=== PATIENT | male | born 1960 | race American Indian/Alaskan Native ===

== ENCOUNTER 2021-07-05 12:16 | Emergency (ER) | payer MEDICAID ==
--- NOTE | 2021-07-05 14:34 | Emergency Department Report ---
HPI - General Chief Complaint: Altered Mental Status Time Seen by Provider: 07/05/21 14:20 - HPI HPI: Room 21 The patient is a 60-year-old male present with a chief complaint of bilateral lower extremity pain. Patient is a poor historian and at times has unintelligible speech but is able to state he has had bilateral lower extremity pain attributed to his gout for the past 3 weeks. Patient denies any other complaints. Patient admits to cocaine use and states he last used last night. The patient was reportedly brought in by EMS from home however the patient's mental baseline is not known at this time. ED Past Medical Hx - Surgical History Past Surgical History?: No - Family History Family history: no significant - Social History Smoking Status: Current Every Day Smoker Substance Use Type: Cocaine ED Review of Systems ROS: Stated complaint: BODY ACHES Other details as noted in HPI Constitutional: no symptoms reported Eyes: denies: eye pain ENT: denies: ear pain, throat pain Respiratory: no symptoms reported Cardiovascular: denies: chest pain Endocrine: no symptoms reported Gastrointestinal: denies: abdominal pain Genitourinary: denies: dysuria Musculoskeletal: myalgia Neurological: denies: headache Physical Exam - Physical Exam Vital Signs: Vital Signs 07/05/21 15:51 Temperature 98.0 F Pulse Rate 81 Respiratory 20 Rate Blood Pressure 126/71 [Right] O2 Sat by Pulse 95 Oximetry Physical Exam: GENERAL: The patient is well-developed well-nourished male lying prone on stretcher appearing restless. [] HEENT: Normocephalic. Atraumatic. Extraocular motions are intact. Patient has moist mucous membranes. NECK: Supple. Trachea midline CHEST/LUNGS: Clear to auscultation. There is no respiratory distress noted. HEART/CARDIOVASCULAR: Regular. There is no tachycardia. There is no gallop rub or murmur. ABDOMEN: Abdomen is soft, nontender. Patient has normal bowel sounds. There is no abdominal distention. SKIN: There is no rash. There is no edema. There is no diaphoresis. NEURO: The patient is awake, alert, and oriented. The patient at times has garbled speech and appears to be under the influence of a controlled substance. The patient is cooperative. The patient has no focal neurologic deficits. The patient has occasionally garbled speech MUSCULOSKELETAL: There is no evidence of acute injury. ED Medical Decision Making - Lab Data Result diagrams: 07/05/21 14:33 07/05/21 14:33 Laboratory Tests 07/05/21 07/05/21 07/05/21 14:33 14:33 14:33 WBC 11.0 RBC 3.64 L Hgb 9.5 L Hct 30.6 L MCV 84 MCH 26 L MCHC 31 L RDW 21.6 H Plt Count 226 Lymph % (Auto) 17.1 [place] % (Auto) 12.2 H Eos % (Auto) 1.9 Baso % (Auto) 0.9 Lymph # (Auto) 1.9 [place] # (Auto) 1.3 H Eos # (Auto) 0.2 Baso # (Auto) 0.1 Seg Neutrophils % 67.9 Seg Neutrophils # 7.4 Sodium 136 L Potassium 4.5 Chloride 99.8 Carbon Dioxide 23 Anion Gap 18 BUN 21 H Creatinine 1.3 Estimated GFR 57 BUN/Creatinine Ratio 16 Glucose 88 Calcium 8.3 L Total Bilirubin 1.70 H AST 48 H ALT 37 Alkaline Phosphatase 167 H Total Creatine Kinase 465 H NT-Pro-B Natriuret Pep 6747 H Total Protein 7.4 Albumin 3.2 L Albumin/Globulin Ratio 0.8 Plasma/Serum Alcohol 07/05/21 14:33 WBC RBC Hgb Hct MCV MCH MCHC RDW Plt Count Lymph % (Auto) [place] % (Auto) Eos % (Auto) Baso % (Auto) Lymph # (Auto) [place] # (Auto) Eos # (Auto) Baso # (Auto) Seg Neutrophils % Seg Neutrophils # Sodium Potassium Chloride Carbon Dioxide Anion Gap BUN Creatinine Estimated GFR BUN/Creatinine Ratio Glucose Calcium Total Bilirubin AST ALT Alkaline Phosphatase Total Creatine Kinase NT-Pro-B Natriuret Pep Total Protein Albumin Albumin/Globulin Ratio Plasma/Serum Alcohol < 0.01 - EKG Data -: EKG Interpreted by Me EKG shows normal: sinus rhythm Rate: normal - EKG Data When compared to previous EKG there are: previous EKG unavailable Interpretation: other (No ischemic changes seen) - Radiology Data Radiology results: report reviewed (CT head, chest x-ray, bilateral lower extremity Dopplers), image reviewed (CT head, chest x-ray, bilateral lower extremity Dopplers) interpreted by me: Chest [id number]. No pneumothorax [facility] [address] [place] [address] Cat Scan Report Signed Patient: ELVIN DUKES MR#: [id number] : 1960 Acct:[id number] Age/Sex: 60 / M ADM Date: 07/05/21 Loc: ED Attending Dr: Ordering Physician: PAUL LEWIS MD Date of Service: 07/05/21 Procedure(s): CT head/brain wo con Accession Number(s): [id number] cc: PAUL LEWIS MD . CT head/brain wo con INDICATION / CLINICAL INFORMATION: 60 years Male; Altered mental status. TECHNIQUE: Routine CT head without contrast. All CT scans at this location are performed using CT dose reduction for ALARA by means of automated exposure control. Motion artifact present. COMPARISON: None. FINDINGS: BRAIN / INTRACRANIAL CONTENTS: A few small lacunar infarcts are seen in the gangliocapsular regions-right greater than left. Otherwise, no acute hemorrhage, mass effect, midline shift, hydrocephalus, or acute, large territorial infarct. No signs of significant atrophy or chronic infarct. There are mild areas of decreased attenuation in the white matter of the cerebral hemispheres, as well as the gangliocapsular regions. These are nonspecific findings and may be related to microangiopathy (hypertension, diabetes, atherosclerosis), given the patient's age. CRANIOCERVICAL JUNCTION: No significant abnormality. ORBITS: No significant abnormality of visualized orbits. SINUSES / MASTOIDS: Visualized paranasal sinuses and mastoid air cells are essentially clear. ADDITIONAL FINDINGS: Very small lipoma suggested superficial to the right frontal bone-of no clinical significance. IMPRESSION: 1. No focal mass, hemorrhage, hydrocepha tona, or acute, large territorial infarct. Follow-up with diffusion imaging by MRI, as clinically warranted. Signer Name: Jesse Dominguez MD, III Signed: 07/05/2021 3:21 PM Workstation Name: [email or web address] Transcribed By: HR Dictated By: Jesse Dominguez MD Electronically Authenticated By: Jesse Dominguez MD Signed Date/Time: 07/05/21 1521 DD/ 1519 TD/TT: Print Cancel [facility] [address] [place] [address] XRay Report Signed Patient: ELVIN DUKES MR#: [id number] : 1960 Acct:[id number] Age/Sex: 60 / M ADM Date: 07/05/21 Loc: ED Attending Dr: Ordering Physician: PAUL LEWIS MD Date of Service: 07/05/21 Procedure(s): XR chest 1V ap Accession Number(s): [id number] cc: PAUL LEWIS MD Fluoro Time In Minutes: CHEST 1 VIEW 07/05/2021 6:46 PM INDICATION / CLINICAL INFORMATION: CHF. COMPARISON: None available. FINDINGS: SUPPORT DEVICES: None. HEART / MEDIASTINUM: Moderate cardiomegaly. LUNGS / PLEURA: Mild increased interstitial markings are likely chronic. No significant infiltrate. No pneumothorax. ADDITIONAL FINDINGS: No significant additional findings. IMPRESSION: 1. Moderate cardiomegaly. 2. Mild increased interstitial markings are favored to be chronic. Signer Name: Oliver Cifuentes MD Signed: 07/05/2021 6:49 PM Workstation Name: [id number] Transcribed By: ES Dictated By: Oliver Cifuentes MD Electronically Authenticated By: Oliver Cifuentes MD Signed Date/Time: 07/05/211848 DD/ 47 TD/TT: Print Cancel [facility] [address] [place] [address] Vascular Lab Report Signed Patient: ELVIN DUKES MR#: [id number] : 1960 Acct:[id number] Age/Sex: 60 / M ADM Date: 07/05/21 Loc: ED Attending Dr: Ordering Physician: PAUL LEWIS MD Date of Service: 07/05/21 Procedure(s): VL venous duplex LE BILAT Accession Number(s): [id number] cc: PAUL LEWIS MD DUPLEX DOPPLER LOWER EXTREMITY VEINS, BILATERAL INDICATION / CLINICAL INFORMATION: Pain and swelling. TECHNIQUE: Duplex doppler imaging was performed through the veins of both lower extremities using venous compression and other maneuvers. COMPARISON: None available. FINDINGS: RIGHT COMMON FEMORAL VEIN: Negative. RIGHT FEMORAL VEIN: Negative. RIGHT POPLITEAL VEIN: Negative. RIGHT CALF VEINS: Negative. LEFT COMMON FEMORAL VEIN: Negative. LEFT FEMORAL VEIN: Negative. LEFT POPLITEAL VEIN: Negative. LEFT CALF VEINS: Negative. ADDITIONAL FINDINGS: None. IMPRESSION: 1. No sonographic evidence for DVT in either lower extremity. Signer Name: Alex Vogel MD Signed: 07/06/2021 5:16 PM Workstation Name: [id number] Transcribed By: TANNER Dictated By: Alex Vogel MD Electronically Authenticated By: Alex Vogel MD Signed Date/Time: 07/06/211715 DD/ 14 TD/TT: Print Cancel - Differential Diagnosis Gout, DVTs, CHF, peripheral edema, ICH Critical care attestation.: If time is entered above; I have spent that time in minutes in the direct care of this critically ill patient, excluding procedure time. ED Disposition Clinical Impression: Altered mental status, CHF (congestive heart failure), Peripheral edema Disposition: OP ADMIT IP TO THIS HOSP Is pt being admited?: Yes Does the pt Need Aspirin: Yes Condition: Fair Referrals: PRIMARY CARE, [Primary Care Provider] - 3-5 Days Time of Disposition: 19:20 (Hospitalist paged (Dr. Dubose))
[2021-07-05 14:47] LABS: Basophils # (Auto) 0.1 K/mm3 (0.0-0.1); Basophils % (Auto) 0.9 % (0.0-1.8); Eosinophils # (Auto) 0.2 K/mm3 (0.0-0.4); Eosinophils % (Auto) 1.9 % (0.0-4.3); Hematocrit 30.6 % (35.5-45.6); Hemoglobin 9.5 gm/dl (11.8-15.2); Lymphocytes # (Auto) 1.9 K/mm3 (1.2-5.4); Lymphocytes % (Auto) 17.1 % (13.4-35.0); Mean Corpuscular HGB Conc 31 % (32-34); Mean Corpuscular Volume 84 fl (84-94); Monocytes # (Auto) 1.3 K/mm3 (0.0-0.8); Monocytes % (Auto) 12.2 % (0.0-7.3); Platelet Count 226 K/mm3 (140-440); Red Blood Count 3.64 M/mm3 (3.65-5.03)
[2021-07-05 14:53] LABS: Red Cell Distribution Width 21.6 % (13.2-15.2)
[2021-07-05 15:10] LABS: Albumin 3.2 g/dL (3.9-5); Calcium 8.3 mg/dL (8.4-10.2)
--- NOTE | 2021-07-05 15:26 | Cat Scan Report ---
. CT head/brain wo con INDICATION / CLINICAL INFORMATION: 60 years Male; Altered mental status. TECHNIQUE: Routine CT head without contrast. All CT scans at this location are performed using CT dos e reduction for ALARA by means of automated exposure control. Motion artifact present. COMPARISON: None. FINDINGS: BRAIN / INTRACRANIAL CONTENTS: A few small lacunar infarcts are seen in the gangliocapsular regions-r ight greater than left. Otherwise, no acute hemorrhage, mass effect, midline shift, hydrocephalus, or acute, large territori al infarct. No signs of significant atrophy or chronic infarct. There are mild areas of decreased attenuation in the white matter of the cerebral hemispheres, as wel l as the gangliocapsular regions. These are nonspecific findings and may be related to microangiopath y (hypertension, diabetes, atherosclerosis), given the patient's age. CRANIOCERVICAL JUNCTION: No significant abnormality. ORBITS: No significant abnormality of visualized orbits. SINUSES / MASTOIDS: Visualized paranasal sinuses and mastoid air cells are essentially clear. ADDITIONAL FINDINGS: Very small lipoma suggested superficial to the right frontal bone-of no clinical significance. IMPRESSION: 1. No focal mass, hemorrhage, hydrocephalus, or acute, large territorial infarct. Follow-up with diff usion imaging by MRI, as clinically warranted. Signer Name: Jesse Dominguez MD, III Signed: 07/05/2021 3:21 PM Workstation Name: [email or web address]
[2021-07-05] MEDS ORDERED: HYDROcodone/ACETAMINOPHEN 5-325 MG TAB PO ONE (15:45)
[2021-07-05] MEDS ORDERED: FUROSEMIDE 40 MG/4 ML INJ IV ONE (18:26)
--- NOTE | 2021-07-05 18:53 | XRay Report ---
CHEST 1 VIEW 07/05/2021 6:46 PM INDICATION / CLINICAL INFORMATION: CHF. COMPARISON: None available. FINDINGS: SUPPORT DEVICES: None. HEART / MEDIASTINUM: Moderate cardiomegaly. LUNGS / PLEURA: Mild increased interstitial markings are likely chronic. No significant infiltrate. N o pneumothorax. ADDITIONAL FINDINGS: No significant additional findings. IMPRESSION: 1. Moderate cardiomegaly. 2. Mild increased interstitial markings are favored to be chronic. Signer Name: Oliver Cifuentes MD Signed: 07/05/2021 6:49 PM Workstation Name: [id number]
[2021-07-05] MEDS ORDERED: ASPIRIN 325 MG TAB PO ONE (19:06)
--- NOTE | 2021-07-05 20:10 | Event Note ---
Date: 07/05/21 Patient discussed with ER attending. Patient found to have schizophrenia. Recommend mental health evaluation. Patient has elevated BNP with compensated heart failure at this time. Patient does not meet admission criteria.
[2021-07-05 23:19] LABS: Amphetamine Screen,Urine PRESUMPTIVE NEGATIVE; Bacteria,Urine 1+ /HPF (Negative); Benzodiazepines Screen,Urine PRESUMPTIVE NEGATIVE; Bilirubin,Urine NEG (Negative); Blood,Urine NEG (Negative); Cannabinoid Screen,Urine PRESUMPTIVE NEGATIVE; Cocaine Screen,Urine PRESUMPTIVE POSITIVE; Color,Urine Amber (Yellow); Methadone Screen,Urine PRESUMPTIVE NEGATIVE; Mucus,Urine FEW /HPF; Opiate Screen,Urine PRESUMPTIVE NEGATIVE
[2021-07-06] MEDS ORDERED: ZIPRASIDONE MESYLATE 20 MG VIAL IM ONE (08:34)
[2021-07-06] MEDS ORDERED: WATER FOR INJ Sterile (PF) 10 ML ONE ×2 (08:37→16:32)
--- NOTE | 2021-07-06 12:20 | Consultation ---
History of Present Illness - Reason for Consult Consult date: 07/06/21 Reason for consult: Mental health evaluation - History of Present Psychiatric Illness Per Ed Note: The patient is a 60-year-old male present with a chief complaint of bilateral lower extremity pain. Patient is a poor historian and at times has unintelligible speech but is able to state he has had bilateral lower extremity pain attributed to his gout for the past 3 weeks. Patient denies any other complaints. Patient admits to cocaine use and states he last used last night. The patient was reportedly brought in by EMS from home however the patient's mental baseline is not known at this time. Torito Dey is a 60 year old male with a history of Schizophrenia. The patient was seen very drowsy and unable to assess patient at this time. Per nurse, the patient was recently given Geodon IM inj. Diagnoses: Schizophrenia Suicide attempts or Self-harm behavior:Unable to assess Prior psychiatric hospitalizations: Unable to assess Substance Abuse history: Unable to assess Previous psychiatric medications tried: Unable to assess Outpatient treatment: Unable to assess PAST MEDICAL HISTORY: None reported Family Psychiatric History: None reported or documented SOCIAL HISTORY-Unable to assess REVIEW OF SYSTEMS-Unable to assess MENTAL STATUS EXAMINATION-Unable to assess Assessment and Plan (1) Schizophrenia Current Visit: Yes Status: Acute Treatment Plan Start Sitter: Per primary Medical: Per primary Disposition: Recommend acute psychiatric inpatient treatment. Will follow. Thanks Case staffed with Dr. Zavala Medications and Allergies Allergies Allergy/AdvReac Type Severity Reaction Status Date / Time No Known Allergies Allergy Verified 07/05/21 21:35 Mental Status Exam - Vital signs Last Vital Signs Temp 98.0 F 07/05/21 15:51 Pulse 95 H 07/05/21 19:46 Resp 12 07/05/21 21:46 BP 121/76 07/06/21 06:16 Pulse Ox 100 07/06/21 08:00 Results Result Diagrams: 07/05/21 14:33 07/05/21 14:33 Abnormal lab results 07/05/21 07/05/21 07/05/21 Range/Units 14:33 14:33 14:33 RBC 3.64 L (3.65-5.03) M/mm3 Hgb 9.5 L (11.8-15.2) gm/dl Hct 30.6 L (35.5-45.6) % MCH 26 L (28-32) pg MCHC 31 L (32-34) % RDW 21.6 H (13.2-15.2) % [place] % (Auto) 12.2 H (0.0-7.3) % [place] # (Auto) 1.3 H (0.0-0.8) K/mm3 Sodium 136 L (137-145) mmol/L BUN 21 H (9-20) mg/dL Calcium 8.3 L (8.4-10.2) mg/dL Total Bilirubin 1.70 H (0.1-1.2) mg/dL AST 48 H (5-40) units/L Alkaline Phosphatase 167 H (35-129) units/L Total Creatine Kinase 465 H (55-170) units/L NT-Pro-B Natriuret Pep 6747 H (0-900) pg/mL Albumin 3.2 L (3.9-5) g/dL All other labs normal.
--- NOTE | 2021-07-06 12:31 | Event Note ---
Date: 07/06/21 S: Patient admitted to the hospitalist by myself last night. Patient was seen by hospitalist Dr. Dubose and cleared medically stating patient does not meet inpatient criteria. The patient had to be sedated with Geodon secondary to verbal outbursts. A mental health consultation was recommended which has been obtained. currently recommending inpatient psychiatric placement. O: Vital Signs - 24 hr 07/05/21 07/05/21 07/05/21 15:51 19:18 19:30 Temperature 98.0 F Pulse Rate 81 93 H 93 H Respiratory 20 9 L 11 L Rate Blood Pressure 123/86 Blood Pressure 126/71 118/74 [Right] O2 Sat by Pulse 95 97 98 Oximetry 07/05/21 07/05/21 07/05/21 19:46 20:00 20:16 Temperature Pulse Rate 95 H Respiratory 9 L 12 9 L Rate Blood Pressure 134/94 127/89 124/92 Blood Pressure [Right] O2 Sat by Pulse 100 98 Oximetry 07/05/21 07/05/21 07/05/21 20:30 20:46 21:00 Temperature Pulse Rate Respiratory 12 10 L 10 L Rate Blood Pressure 132/92 117/85 124/86 Blood Pressure [Right] O2 Sat by Pulse 99 99 97 Oximetry 07/05/21 07/05/21 07/05/21 21:16 21:30 21:46 Temperature Pulse Rate Respiratory 9 L 9 L 12 Rate Blood Pressure 128/96 129/88 126/91 Blood Pressure [Right] O2 Sat by Pulse 99 99 99 Oximetry 07/05/21 07/05/21 07/05/21 22:40 23:00 23:15 Temperature Pulse Rate Respiratory Rate Blood Pressure 93/50 130/85 93/50 Blood Pressure [Right] O2 Sat by Pulse 68 L Oximetry 07/05/21 07/05/21 07/06/21 23:30 23:46 00:00 Temperature Pulse Rate Respiratory Rate Blood Pressure 130/85 130/85 106/70 Blood Pressure [Right] O2 Sat by Pulse 99 97 99 Oximetry 07/06/21 07/06/21 07/06/21 00:16 00:30 00:46 Temperature Pulse Rate Respiratory Rate Blood Pressure 106/70 111/59 111/59 Blood Pressure [Right] O2 Sat by Pulse 97 97 100 Oximetry 07/06/21 07/06/21 07/06/21 01:00 01:16 01:30 Temperature Pulse Rate Respiratory Rate Blood Pressure 120/67 120/67 120/67 Blood Pressure [Right] O2 Sat by Pulse 97 100 98 Oximetry 07/06/21 07/06/21 07/06/21 01:46 02:00 02:16 Temperature Pulse Rate Respiratory Rate Blood Pressure 120/67 120/81 120/67 Blood Pressure [Right] O2 Sat by Pulse 97 98 98 Oximetry 07/06/21 07/06/21 07/06/21 02:30 02:46 03:00 Temperature Pulse Rate Respiratory Rate Blood Pressure 101/72 101/72 101/72 Blood Pressure [Right] O2 Sat by Pulse 78 L 95 96 Oximetry 07/06/21 07/06/21 07/06/21 03:30 03:46 04:00 Temperature Pulse Rate Respiratory Rate Blood Pressure 101/72 101/72 115/89 Blood Pressure [Right] O2 Sat by Pulse 99 99 85 Oximetry 07/06/21 07/06/21 07/06/21 04:16 04:30 04:46 Temperature Pulse Rate Respiratory Rate Blood Pressure 101/72 134/100 134/100 Blood Pressure [Right] O2 Sat by Pulse 96 100 100 Oximetry 07/06/21 07/06/21 07/06/21 05:00 05:16 05:30 Temperature Pulse Rate Respiratory Rate Blood Pressure 134/100 134/100 134/100 Blood Pressure [Right] O2 Sat by Pulse 99 95 98 Oximetry 07/06/21 07/06/21 07/06/21 05:46 06:00 06:16 Temperature Pulse Rate Respiratory Rate Blood Pressure 134/100 121/76 121/76 Blood Pressure [Right] O2 Sat by Pulse 96 96 93 Oximetry 07/06/21 07/06/21 07/06/21 06:30 06:46 07:00 Temperature Pulse Rate Respiratory Rate Blood Pressure Blood Pressure [Right] O2 Sat by Pulse 97 97 98 Oximetry 07/06/21 07/06/21 07/06/21 07:16 07:30 07:46 Temperature Pulse Rate Respiratory Rate Blood Pressure Blood Pressure [Right] O2 Sat by Pulse 98 100 97 Oximetry 07/06/21 08:00 Temperature Pulse Rate Respiratory Rate Blood Pressure Blood Pressure [Right] O2 Sat by Pulse 100 Oximetry A: Schizophrenia, compensated CHF P: Awaiting inpatient psychiatric placement
--- NOTE | 2021-07-06 14:32 | Electrocardiograph Report ---
[facility] Test Date: 2021-07-05 Test Time: 18:59:15 Pat Name: ELVIN DUKES Department: Room: Gender: M Shipping Lead: KANCHAN : 1960 Requested By: PAUL LEWIS Order Number: [id number] Reading MD: Milan Winters Measurements Intervals [place] Rate: 97 P: 56 AL: 160 QRS: 18 QRSD: 132 T: 132 QT: 405 QTc: 516 Interpretive Statements Sinus rhythm IVCD, consider LBBB Prolonged QT interval No previous ECG available for comparison Electronically Signed On 07-06-2021 14:31:46 EDT by Milan Winters
[2021-07-06] MEDS ORDERED: ZIPRASIDONE MESYLATE 20 MG VIAL IM PRN (16:16)
[2021-07-06] MEDS ORDERED: LORazepam 2 MG/ML VIAL IM PRN (16:16)
[2021-07-06] MEDS ORDERED: diphenhydrAMINE 50 MG/ML VIAL IM PRN (16:16)
--- NOTE | 2021-07-06 17:20 | Vascular Lab Report ---
DUPLEX DOPPLER LOWER EXTREMITY VEINS, BILATERAL INDICATION / CLINICAL INFORMATION: Pain and swelling. TECHNIQUE: Duplex doppler imaging was performed through the veins of both lower extremities using venous cherelle babs and other maneuvers. COMPARISON: None available. FINDINGS: RIGHT COMMON FEMORAL VEIN: Negative. RIGHT FEMORAL VEIN: Negative. RIGHT POPLITEAL VEIN: Negative. RIGHT CALF VEINS: Negative. LEFT COMMON FEMORAL VEIN: Negative. LEFT FEMORAL VEIN: Negative. LEFT POPLITEAL VEIN: Negative. LEFT CALF VEINS: Negative. ADDITIONAL FINDINGS: None. IMPRESSION: 1. No sonographic evidence for DVT in either lower extremity. Signer Name: Alex Vogel MD Signed: 07/06/2021 5:16 PM Workstation Name: [id number]
[2021-07-07 09:16] VITALS: BP 147/77
--- NOTE | 2021-07-07 09:51 | Progress Note ---
Subjective - Reason for Consult Consult date: 07/07/21 Reason for consult: Mental health eval - Chief Complaint Chief complaint: The patient was seen today and he states he is not sure why he is here. The patient reports that he is homeless. He denies any current suicidal/homicidal ideation and denies hallucinations. REVIEW OF SYSTEMS Constitutional: Negative for weight loss ENT: Negative for stridor Respiratory: Negative for cough or hemoptysis All other systems reviewed and are negative MENTAL STATUS EXAMINATION General Appearance and Behavior: Age appropriate, good hygiene, wearing appropri ate clothes, cooperative, cooperative Cooperation: Participating/engaged Psychomotor Behavior: normal Mood: "ok" Affect and affective range: congruent with stated mood Thought Process: goal directed Thought Content: Not Suicidal Speech: Normal volume, Regular rate and rhythm Suicidal Ideation: Denies Homicidal Ideation: Denies Hallucinations: Denies Delusions: None elicited Impulse Control: Questionable Insight and Judgment: poor insight and judgment, Memory: abnormal Attention: Distractible Orientation: Alert, oriented Assessment and Plan (1) Schizophrenia (2) Current Visit: Yes Status: Acute Treatment Plan Case management consult Sitter: Per primary Medical: Per primary Disposition: Do not recommend acute psychiatric inpatient treatment. The patient understands that if suicidal/homicidal ideas or any endangering thoughts/ behaviors arise, they should seek immediate assistance including but not limited to crisis hotline and emergency room. The patient will follow up with outpatient referrals provided by the mental health quality control assessor. Will sign off. Thanks Case staffed with Dr. Zavala Mental Status Exam - Vital signs Last Vital Signs Temp 97.5 F L 07/07/21 09:14 Pulse 88 07/07/21 09:14 Resp 16 07/07/21 09:14 BP 147/77 07/07/21 09:14 Pulse Ox 97 07/07/21 09:14
== END 2021-07-07 14:45 | disposition home or self-care (01) ==
LOC: EEVIPCON 12:16 → ED 12:16
DX: R41.82 Altered mental status, unspecified (principal); R60.9 Edema, unspecified; I50.9 Heart failure, unspecified; F17.290 Nicotine dependence, other tobacco product, uncomplicated; Z20.822 Contact with and (suspected) exposure to COVID-19
CPT/HCPCS: 36415; 70450; 71045; 80053; 80307; 81001; 82550; 83880; 85025; 93005; 93970; 96372; 96374; 99285; J1200; J2060; J3486; U0003; 80320; G0480

== ENCOUNTER 2021-11-03 19:28 | Emergency (ER) | payer MEDICAID ==
[2021-11-03 19:32] VITALS: BP 134/82
--- NOTE | 2021-11-03 21:42 | Emergency Department Report ---
ED Chest Pain HPI - General Chief Complaint: Pain General Stated Complaint: GOUT/ LEFT ARM PAIN Time Seen by Provider: 11/03/21 21:17 Source: EMS Mode of arrival: Wheelchair Limitations: No Limitations - History of Present Illness Initial Comments: 60-year-old Stateless male past no history of hypertension and and known CHF [facility] emerge department complaining of lower extremity swelling and suspicion for is a heart failure exacerbation given that he is not been taking his medication explained some swelling and some occasional shortness of breath. Re ports no hemoptysis no hematemesis hematochezia, no fever, chills, sweats. No nausea, no vomiting and is unsure about weight gain MD Complaint: chest pain -: Gradual, days(s) (6) Onset: other Pain Location: left chest Pain Radiation: none Severity: mild, moderate Quality: dull Consistency: constant Improves With: nothing Worsens With: nothing re: nausea Other Symptoms: cough. denies: acid taste in mouth, leg swelling, palpitations, burping Treatments Prior to Arrival: none - Related Data On Oral Contraceptives: No Home Medications Medication Instructions Recorded Confirmed Last Taken Albuterol Mdi (or & Nicu Only) 2 puff IH QID PRN 08/01/21 08/01/21 Unknown [ProAir HFA Inhaler] AtorvaSTATin [Lipitor] 20 mg PO QHS 08/01/21 08/01/21 07/29/21 Cyclobenzaprine [Flexeril] 10 mg PO QHS 08/01/21 08/01/21 07/29/21 Furosemide [Lasix] 40 mg PO DAILY 08/01/21 08/01/21 07/29/21 Isosorbide Mononitrate [Isosorbide 30 mg PO DAILY 08/01/21 08/01/21 07/29/21 Mononitrate ER] Oxycodone HCl [roxiCODONE] 30 mg PO Q6H 08/01/21 08/01/21 07/29/21 Oxycodone HCl/Acetaminophen 1 each PO Q6H 08/01/21 08/01/21 07/29/21 [Oxycodone-Acetaminophen 10-325] carvediloL [Coreg] 6.25 mg PO BID 08/01/21 08/01/21 07/29/21 lisinopriL 10 mg PO DAILY 0908/01/21 07/29/21 Previous Rx's Medication Instructions Recorded Last Taken Type risperiDONE [RisperDAL] 2 mg PO QHS 30 Days #30 tablet 07/07/21 07/29/21 Rx Furosemide [Lasix TAB] 40 mg PO QDAY #7 tablet 11/04/21 Unknown Rx Potassium Chloride [K-Dur] 10 meq PO QDAY #7 tablet 11/04/21 Unknown Rx Allergies Allergy/AdvReac Type Severity Reaction Status Date / Time No Known Allergies Allergy Verified 11/03/21 19:31 Heart Score - HEART Score History: Moderately suspicious EKG: Normal Age: 45-65 Risk factors: 1-2 risk factors Troponin: < normal limit HEART Score: 3 ED Review of Systems ROS: Stated complaint: GOUT/ LEFT ARM PAIN Other details as noted in HPI Comment: All other systems reviewed and negative ED Past Medical Hx - Past Medical History Hx Hypertension: Yes Hx Diabetes: Yes Additional medical history: gout - Surgical History Additional Surgical History: unknown - Social History Smoking Status: Never Smoker - Medications Home Medications: Home Medications Medication Instructions Recorded Confirmed Last Taken Type risperiDONE [RisperDAL] 2 mg PO QHS 30 Days #30 tablet 07/07/21 08/01/21 07/29/21 Rx Albuterol Mdi (or & Nicu Only) 2 puff IH QID PRN 08/01/21 08/01/21 Unknown History [ProAir HFA Inhaler] AtorvaSTATin [Lipitor] 20 mg PO QHS 08/01/21 08/01/21 07/29/21 History Cyclobenzaprine [Flexeril] 10 mg PO QHS 08/01/21 08/01/21 07/29/21 History Furosemide [Lasix] 40 mg PO DAILY 08/01/21 08/01/21 07/29/21 History Isosorbide Mononitrate [Isosorbide 30 mg PO DAILY 08/01/21 08/01/21 07/29/21 History Mononitrate ER] Oxycodone HCl [roxiCODONE] 30 mg PO Q6H 08/01/21 08/01/21 07/29/21 History Oxycodone HCl/Acetaminophen 1 each PO Q6H 08/01/21 08/01/21 07/29/21 History [Oxycodone-Acetaminophen 10-325] carvediloL [Coreg] 6.25 mg PO BID 08/01/21 08/01/21 07/29/21 History lisinopriL 10 mg PO DAILY 08/01/21 08/01/21 07/29/21 History Furosemide [Lasix TAB] 40 mg PO QDAY #7 tablet 11/04/21 Unknown Rx Potassium Chloride [K-Dur] 10 meq PO QDAY #7 tablet 11/04/21 Unknown Rx ED Physical Exam - General Limitations: No Limitations General appearance: alert, in no apparent distress - Head Head exam: Present: atraumatic, normocephalic - Eye Eye exam: Present: normal appearance, PERRL, EOMI Pupils: Present: normal accommodation - ENT ENT exam: Present: mucous membranes moist - Neck Neck exam: Present: normal inspection - Respiratory Respiratory exam: Present: normal lung sounds bilaterally, chest wall tenderness (left sided in rib area. no crepitus or step-off). Absent: respiratory distress - Cardiovascular Cardiovascular Exam: Present: regular rate, normal rhythm. Absent: systolic murmur, diastolic murmur, rubs, gallop - GI/Abdominal GI/Abdominal exam: Present: soft, normal bowel sounds - Rectal Rectal exam: Present: deferred - Extremities Exam Extremities exam: Present: normal inspection, normal capillary refill, pedal edema. Absent: tenderness, joint swelling, calf tenderness - Back Exam Back exam: Present: normal inspection. Absent: tenderness, CVA tenderness (R), CVA tenderness (L), paraspinal tenderness - Neurological Exam Neurological exam: Present: alert, oriented X3, CN II-XII intact, normal gait - Psychiatric Psychiatric exam: Present: normal affect, normal mood - Skin Skin exam: Present: warm, dry, intact, normal color. Absent: rash, diaphoretic ED Course Vital Signs 11/03/21 19:31 Temperature 98.9 F Pulse Rate 80 Respiratory 18 Rate Blood Pressure 134/82 [Left] O2 Sat by Pulse 99 Oximetry - Consultations Consultation #1: 11/04/21 00:34 Case was discussed with my attending Dr. Bose who agreed with the plan of care to treat the chronic/acute on chronic exacerbation of CHF with IV diuretics and discharge home as patient has remained hemodynamically stable with no signs of hypoxia ARBEN score - Arben Score Age > 65: (0) No Aspirin use within the Past 7 Days: (0) No 3 or more CAD Risk Factors: (0) No 2 or more Angina events in past 24 hrs: (0) No Known CAD with more than 50% Stenosis: (0) No Elevated Cardiac Markers: (0) No ST Deviation Greater than 0.5mm: (0) No ARBEN Score: 0 ED Medical Decision Making - Lab Data Result diagrams: 11/03/21 21:59 11/03/21 21:59 - EKG Data EKG shows normal: sinus rhythm Rate: normal - EKG Data When compared to previous EKG there are: no significant change Interpretation: no acute changes - Radiology Data Radiology results: report reviewed [facility] [address] [place] [address] XRay Report Signed Patient: ELVIN DUKES MR#: [id number] : 1960 Acct:[id number] Age/Sex: 60 / M ADM Date: 11/03/21 Loc: ED Attending Dr: Ordering Physician: BONY FISHMAN Date of Service: 11/03/21 Procedure(s): XR chest routine 2V Accession Number(s): [id number] cc: BONY FISHMAN Fluoro Time In Minutes: XR chest routine 2V INDICATION / CLINICAL INFORMATION: Chest Pain. COMPARISON: 08/02/2021 FINDINGS: SUPPORT DEVICES: None. HEART /PULMONARY VASCULATURE: Cardiac enlargement with pulmonary vasculature c ongestion. LUNGS / PLEURA: Diffuse increased interstitial opacities likely reflects edema. Streaky opacities in the left midlung may reflect atelectasis. No airspace consolidation of the right lung base. No sizable pleural effusion. No pneumothorax. ADDITIONAL FINDINGS: No significant additional findings. IMPRESSION: CHF/fluid overload with pulmonary edema. Right basilar consolidation may reflect focal asymmetric edema or infiltrate. Signer Name: Tatyana Hercules MD Signed: 11/03/2021 11:12 PM Workstation Name: [id number] Transcribed By: VIJAY Dictated By: TATYANA HERCULES MD Electronically Authenticated By: TATYANA HERCULES MD Signed Date/Time: 11/03/212311 DD/ 10 TD/TT: - Medical Decision Making 60-year-old male with a past medical history of hypertension, gout, CHF presents emergency department with signs and symptoms consistent with acute exacerbation of chronic CHF likely due to fluid overload/increase intake. Differential diagnosis includes other cardiopulmonary causes such as ischemia, PE, pneumothorax, pneumonia and as well as as other causes for for dyspnea such as asthma, COPD, flash pulmonary edema, dysuria arrhythmia although these are less likely. Patient is generally hemodynamically stable. Plan patient has remained hemodynamically stable, vital signs stable, relatively normal EKG and labs as well as troponin. Will require IV diuretics and medical optimization and should be a candidate for discharge home. Critical care attestation.: If time is entered above; I have spent that time in minutes in the direct care of this critically ill patient, excluding procedure time. ED Disposition Clinical Impression: CHF exacerbation Condition: Stable Instructions: Heart Failure, Self Care, Heart Failure, Diagnosis, Preventing Heart Failure, Heart Failure Exacerbation, Heart Failure Medicines, Heart Failure and Exercise, Heart Failure Eating Plan, Cardiac Rehabilitation Additional Instructions: You evaluate emergency department today for acute on chronic CHF. Evaluation showed no signs of any emergent intervention at this time. Treatment was made in the form of Lasix to decompress your current fluid volume and is recommended to restart taking your Lasix prescription that was recently prescribed by your primary care provider to avoid since heart failure exacerbation/fluid overload. Recommend follow-up with your primary care provider or [facility] mk 2 advanced operator as soon as possible for for further testing as an outpatient Prescriptions: Potassium Chloride [K-Dur] 10 meq PO QDAY #7 tablet Furosemide [Lasix TAB] 40 mg PO QDAY #7 tablet Referrals: PRIMARY MD NADEEN [Primary Care Provider] - 3-5 Days GARY ALLEN MD [Staff Physician] - 3-5 Days
[2021-11-03 22:53] LABS: Alanine Aminotransferase 11 units/L (7-56); Albumin 3.9 g/dL (3.9-5); BUN/Creatinine Ratio 11; Blood Urea Nitrogen 10 mg/dL (9-20); Calcium 8.8 mg/dL (8.4-10.2); Hemolysis Index 0
[2021-11-03 23:06] LABS: Basophils # (Auto) 0.1 K/mm3 (0.0-0.1); Basophils % (Auto) 0.8 % (0.0-1.8); Eosinophils # (Auto) 0.2 K/mm3 (0.0-0.4); Eosinophils % (Auto) 1.7 % (0.0-4.3); Lymphocytes # (Auto) 2.3 K/mm3 (1.2-5.4); Lymphocytes % (Auto) 19.7 % (13.4-35.0); Mean Corpuscular HGB Conc 30 % (32-34); Mean Corpuscular Volume 85 fl (84-94); Monocytes # (Auto) 1.3 K/mm3 (0.0-0.8); Monocytes % (Auto) 11.6 % (0.0-7.3); Platelet Count 269 K/mm3 (140-440); Red Blood Count 3.27 M/mm3 (3.65-5.03)
[2021-11-03 23:10] LABS: Hematocrit 27.9 % (35.5-45.6); Hemoglobin 8.2 gm/dl (11.8-15.2); Red Cell Distribution Width 21.6 % (13.2-15.2)
--- NOTE | 2021-11-03 23:16 | XRay Report ---
XR chest routine 2V INDICATION / CLINICAL INFORMATION: Chest Pain. COMPARISON: 08/02/2021 FINDINGS: SUPPORT DEVICES: None. HEART /PULMONARY VASCULATURE: Cardiac enlargement with pulmonary vasculature congestion. LUNGS / PLEURA: Diffuse increased interstitial opacities likely reflects edema. Streaky opacities in the left midlung may reflect atelectasis. No airspace consolidation of the right lung base. No sizabl e pleural effusion. No pneumothorax. ADDITIONAL FINDINGS: No significant additional findings. IMPRESSION: CHF/fluid overload with pulmonary edema. Right basilar consolidation may reflect focal asymmetric ayan ma or infiltrate. Signer Name: Agusto Hercules MD Signed: 11/03/2021 11:12 PM Workstation Name: [id number]
[2021-11-04] MEDS ORDERED: FUROSEMIDE 40 MG/4 ML INJ IV ONE
== END 2021-11-04 01:55 | disposition home or self-care (01) ==
LOC: ED 19:28
DX: I11.0 Hypertensive heart disease with heart failure (principal); I50.9 Heart failure, unspecified; Z79.899 Other long term (current) drug therapy
CPT/HCPCS: 36415; 71046; 80053; 83880; 84484; 85025; 96374; 99284; J1940

== ENCOUNTER 2021-11-29 00:24 | Emergency (ER) | payer MEDICAID ==
[2021-11-29 00:28] VITALS: BP 140/90
[2021-11-29] MEDS ORDERED: methylPREDNISolone Sod Succinate 125 MG/2 ML INJ IV ONE (01:58)
[2021-11-29] MEDS ORDERED: MORPHINE 4 MG/1 ML INJ IV ONE (01:58)
[2021-11-29] MEDS ORDERED: ONDANSETRON 4 MG/2 ML INJ IV ONE (01:58)
[2021-11-29] MEDS ORDERED: ASPIRIN 325 MG TAB PO ONE (01:59)
[2021-11-29 02:31] LABS: Basophils # (Auto) 0.1 K/mm3 (0.0-0.1); Basophils % (Auto) 0.6 % (0.0-1.8); Eosinophils # (Auto) 0.4 K/mm3 (0.0-0.4); Eosinophils % (Auto) 3.7 % (0.0-4.3); Lymphocytes # (Auto) 1.7 K/mm3 (1.2-5.4); Lymphocytes % (Auto) 16.2 % (13.4-35.0); Mean Corpuscular HGB Conc 30 % (32-34); Mean Corpuscular Volume 83 fl (84-94); Monocytes # (Auto) 1.4 K/mm3 (0.0-0.8); Monocytes % (Auto) 12.8 % (0.0-7.3); Platelet Count 382 K/mm3 (140-440); Red Blood Count 4.28 M/mm3 (3.65-5.03); Red Cell Distribution Width 19.7 % (13.2-15.2)
--- NOTE | 2021-11-29 02:39 | XRay Report ---
CHEST 1 VIEW INDICATION / CLINICAL INFORMATION: Left-sided chest pain. COMPARISON: 11/03/2021 FINDINGS: SUPPORT DEVICES: None. HEART / MEDIASTINUM: No significant abnormality. LUNGS / PLEURA: No significant pulmonary or pleural abnormality. No pneumothorax. ADDITIONAL FINDINGS: There is a healing fracture of the posterior sixth left rib. IMPRESSION: 1. No acute pulmonary or pleural disease. 2. Healing fracture of left posterior sixth rib. Signer Name: Ghislaine Lincoln MD Signed: 11/29/2021 2:35 AM Workstation Name: [id number]
[2021-11-29 02:49] LABS: Alanine Aminotransferase 28 units/L (7-56); Albumin 3.6 g/dL (3.9-5); BUN/Creatinine Ratio 14; Blood Urea Nitrogen 11 mg/dL (9-20); Calcium 9.2 mg/dL (8.4-10.2); Hemolysis Index 22
[2021-11-29 02:53] LABS: Hemoglobin 10.5 gm/dl (11.8-15.2)
[2021-11-29 02:54] LABS: Hematocrit 35.3 % (35.5-45.6)
--- NOTE | 2021-11-29 04:12 | Emergency Department Report ---
ED General Adult HPI - General Chief complaint: Pain General Stated complaint: BODY ACHES Source: EMS Mode of arrival: Wheelchair Limitations: No Limitations - History of Present Illness Initial comments: Patient is a 61-year-old -Fijian male with a history of hypertension, CHF, myi-axantlg-iamykciir diabetes, chronic osteoarthritis, chronic gout and asthma who presented to the ED with complaint of acute onset persistent diffuse body aches and pains, severe bilateral upper and lower extremity joint pains with left lateral rib pain for the last 12 hours. Patient states that he believes that his pain is due to his chronic osteoarthritis that is flaring up and that despite taking Tylenol at home the pain has been persistent and constant. Patient states that his pain is typical of his chronic osteoarthritis flareup pain. Patient denies dizziness, syncope, chest pain, shortness of breath, abdominal pain, nausea and vomiting, diarrhea, dysuria, urinary frequen cy and urgency, fever, chills, cough, sore throat, nasal and sinus congestion, numbness and tingling or weakness of upper and lower extremities bilaterally, fall or traumatic injury and heavy lifting. MD Complaint: diffuse polyarticular joint pains; left sided rib pain -: Sudden, hour(s) (12) Location: chest, upper extremity (bilaterally), lower extremity (bilaterally) Radiation: extremity (diffuse) Severity scale (0 -10): 8 Quality: aching, sharp Consistency: constant Improves with: none Worsens with: movement Associated Symptoms: denies other symptoms. denies: confusion, chest pain, cough, diaphoresis, headaches, loss of appetite, malaise, rash, shortness of breath, syncope Treatments Prior to Arrival: none - Related Data Home Medications Medication Instructions Recorded Confirmed Last Taken Oxycodone HCl [roxiCODONE] 30 mg PO Q6H 08/01/21 11/06/21 07/29/21 ALBUTEROL NEB's [Proventil 0.083% 2.5 mg IH QDAY 11/06/21 11/06/21 Unknown NEBS] Alfuzosin HCl [Alfuzosin HCl ER] 10 mg PO QDAY 11/06/21 11/06/21 Unknown Previous Rx's Medication Instructions Recorded Last Taken Type Aspirin [Aspirin BABY CHEW TAB] 81 mg PO QDAY #30 11/08/21 Unknown Rx AtorvaSTATin [Lipitor] 20 mg PO QHS #20 11/08/21 Unknown Rx Colchicine [Colcrys] 0.6 mg PO BID #10 tablet 11/08/21 Unknown Rx Cyclobenzaprine [Flexeril 10 MG 10 mg PO QHS #10 11/08/21 Unknown Rx TAB] Furosemide [Lasix TAB] 40 mg PO 0600,1800 tablet 11/08/21 Unknown Rx Furosemide [Lasix TAB] 80 mg PO QDAY #30 11/08/21 Unknown Rx Isosorbide Mononitrate [Isosorbide 30 mg PO DAILY #30 11/08/21 Unknown Rx Mononitrate ER] Nicotine [Habitrol] 14 mg TD DAILY #30 patch 11/08/21 Unknown Rx Pantoprazole [Protonix TAB] 40 mg PO QDAY #30 11/08/21 Unknown Rx Potassium Chloride [K-Dur] 10 meq PO QDAY #30 tablet 11/08/21 Unknown Rx carvediloL [Coreg] 6.25 mg PO BID #60 tablet 11/08/21 Unknown Rx lisinopriL [Zestril TAB] 10 mg PO QDAY #30 11/08/21 Unknown Rx risperiDONE [RisperDAL] 2 mg PO QHS #30 tablet 11/08/21 Unknown Rx Naproxen 500 mg PO Q12H PRN #30 tablet 11/29/21 Unknown Rx predniSONE [Deltasone] 40 mg PO QDAY #10 tab 11/29/21 Unknown Rx traMADoL [Ultram] 50 mg PO Q6HR PRN #10 tablet 11/29/21 Unknown Rx Allergies Allergy/AdvReac Type Severity Reaction Status Date / Time No Known Allergies Allergy Verified 11/29/21 00:27 ED Review of Systems ROS: Stated complaint: BODY ACHES Other details as noted in HPI Constitutional: denies: chills, fever Eyes: denies: eye pain, eye discharge, vision change ENT: denies: ear pain, throat pain Respiratory: denies: cough, shortness of breath, wheezing Cardiovascular: chest pain (Left lateral rib pain). denies: palpitations Endocrine: no symptoms reported Gastrointestinal: denies: abdominal pain, nausea, vomiting, diarrhea Genitourinary: denies: urgency, dysuria Musculoskeletal: back pain, arthralgia (Diffuse polyarticular joint pains), myalgia. denies: joint swelling Skin: denies: rash, lesions Neurological: denies: headache, weakness, paresthesias Psychiatric: denies: anxiety, depression Hematological/Lymphatic: denies: easy bleeding, easy bruising ED Past Medical Hx - Past Medical History Hx Hypertension: Yes Hx Congestive Heart Failure: Yes Hx Diabetes: Yes Hx Arthritis: Yes Hx Asthma: Yes Additional medical history: gout - Surgical History Additional Surgical History: unknown - Social History Smoking Status: Never Smoker - Medications Home Medications: Home Medications Medication Instructions Recorded Confirmed Last Taken Type Oxycodone HCl [roxiCODONE] 30 mg PO Q6H 08/01/21 11/06/21 07/29/21 History ALBUTEROL NEB's [Proventil 0.083% 2.5 mg IH QDAY 11/06/21 11/06/21 Unknown History NEBS] Alfuzosin HCl [Alfuzosin HCl ER] 10 mg PO QDAY 11/06/21 11/06/21 Unknown History Aspirin [Aspirin BABY CHEW TAB] 81 mg PO QDAY #30 11/08/21 Unknown Rx AtorvaSTATin [Lipitor] 20 mg PO QHS #20 11/08/21 Unknown Rx Colchicine [Colcrys] 0.6 mg PO BID #10 tablet 11/08/21 Unknown Rx Cyclobenzaprine [Flexeril 10 MG 10 mg PO QHS #10 11/08/21 Unknown Rx TAB] Furosemide [Lasix TAB] 40 mg PO 0600,1800 tablet 11/08/21 Unknown Rx Furosemide [Lasix TAB] 80 mg PO QDAY #30 11/08/21 Unknown Rx Isosorbide Mononitrate [Isosorbide 30 mg PO DAILY #30 11/08/21 Unknown Rx Mononitrate ER] Nicotine [Habitrol] 14 mg TD DAILY #30 patch 11/08/21 Unknown Rx Pantoprazole [Protonix TAB] 40 mg PO QDAY #30 11/08/21 Unknown Rx Potassium Chloride [K-Dur] 10 meq PO QDAY #30 tablet 11/08/21 Unknown Rx carvediloL [Coreg] 6.25 mg PO BID #60 tablet 11/08/21 Unknown Rx lisinopriL [Zestril TAB] 10 mg PO QDAY #30 11/08/21 Unknown Rx risperiDONE [RisperDAL] 2 mg PO QHS #30 tablet 11/08/21 Unknown Rx Naproxen 500 mg PO Q12H PRN #30 tablet 11/29/21 Unknown Rx predniSONE [Deltasone] 40 mg PO QDAY #10 tab 11/29/21 Unknown Rx traMADoL [Ultram] 50 mg PO Q6HR PRN #10 tablet 11/29/21 Unknown Rx ED Physical Exam - General Limitations: No Limitations General appearance: alert, in no apparent distress - Head Head exam: Present: atraumatic, normocephalic, normal inspection - Eye Eye exam: Present: normal appearance, PERRL, EOMI Pupils: Present: normal accommodation - ENT ENT exam: Present: normal exam, normal orophraynx, mucous membranes moist, TM's normal bilaterally, normal external ear exam - Neck Neck exam: Present: normal inspection, full ROM. Absent: tenderness, meningismus - Respiratory Respiratory exam: Present: normal lung sounds bilaterally, chest wall tenderness (Palpable reproducible left lateral rib tenderness). Absent: respiratory distress, wheezes, rales, accessory muscle use, decreased breath sounds - Cardiovascular Cardiovascular Exam: Present: regular rate, normal rhythm, normal heart sounds. Absent: systolic murmur, diastolic murmur, rubs, gallop - GI/Abdominal GI/Abdominal exam: Present: soft, normal bowel sounds. Absent: tenderness, rebound, hyperactive bowel sounds, hypoactive bowel sounds, organomegaly - Extremities Exam Extremities exam: Present: normal inspection, full ROM, tenderness (Palpable diffuse upper and lower extremity joint tenderness), normal capillary refill. Absent: pedal edema, joint swelling, calf tenderness - Back Exam Back exam: Present: normal inspection, full ROM, tenderness, muscle spasm, paraspinal tenderness. Absent: CVA tenderness (R), CVA tenderness (L), vertebral tenderness - Neurological Exam Neurological exam: Present: alert, oriented X3, CN II-XII intact, normal gait, reflexes normal - Psychiatric Psychiatric exam: Present: normal affect, normal mood - Skin Skin exam: Present: warm, dry, intact, normal color. Absent: rash ED Course Vital Signs 11/29/21 11/29/21 00:27 02:55 Temperature 98.2 F Pulse Rate 86 Respiratory 18 15 Rate Blood Pressure 140/90 [Left] O2 Sat by Pulse 98 Oximetry ED Medical Decision Making - Lab Data Result diagrams: 11/29/21 02:07 11/29/21 02:07 - Radiology Data Radiology results: report reviewed, image reviewed [facility] [address] [place] [address] XRay Report Signed Patient: ELVIN DUKES MR#: [id number] : 1960 Acct:[id number] Age/Sex: 61 / M ADM Date: 11/29/21 Loc: ED Attending Dr: Ordering Physician: BONY CORDON Date of Service: 11/29/21 Procedure(s): XR chest 1V ap Accession Number(s): [id number] cc: BONY CORDON Fluoro Time In Minutes: CHEST 1 VIEW INDICATION / CLINICAL INFORMATION: Left-sided chest pain. COMPARISON: 11/03/2021 FINDINGS: SUPPORT DEVICES: None. HEART / MEDIASTINUM: No significant abnormality. LUNGS / PLEURA: No significant pulmonary or pleural abnormality. No pneumo thorax. ADDITIONAL FINDINGS: There is a healing fracture of the posterior sixth left rib. IMPRESSION: 1. No acute pulmonary or pleural disease. 2. Healing fracture of left posterior sixth rib. Signer Name: Ghislaine Lincoln MD Signed: 11/29/2021 2:35 AM Workstation Name: [id number] Transcribed By: Dictated By: Ghislaine Lincoln MD Electronically Authenticated By: Ghislaine Lincoln MD Signed Date/Time: 11/29/21234 DD/ 1 TD/TT: Print - Medical Decision Making This is a 61-year-old -Fijian male with a history of hypertension, CHF, lin-jkynojv-kpiquupkm diabetes, chronic osteoarthritis, chronic gout and asthma who presented to the ED with complaint of acute onset persistent diffuse body aches and pains, severe bilateral upper and lower extremity joint pains with left lateral rib pain for the last 12 hours. Patient states that he believes that his pain is due to his chronic osteoarthritis that is flaring up and that despite taking Tylenol at home the pain has been persistent and constant. Patient states that his pain is typical of his chronic osteoarthritis flareup pain. In the ED, patient is alert and oriented x3 and is not in any distress. Patient was treated in the ED for pain, and lab test results were reviewed and showed mild hyponatremia 133 mmol/L, and BNP of 1801 with a normal troponin level. Chest x-ray showed no acute pulmonary or pleural disease. It also s howed a healing fracture of left posterior sixth rib. Patient was also treated in the ED with Lasix 40 mg IV x1. Although the patient has a prescription of Lasix with him in the ED, it is doubtful whether the patient is any compliant with his regular medications given the fact that he was just discharged from [facility] 3 days ago after spending 6 days in the hospital for CHF exacerbation. Patient however presented to the ED with chronic pain complaints. On reevaluation, patient felt better, pain is well controlled medication. Patient was discharged home and encouraged to take his Lasix that he already has at home in order to control his CHF condition. Patient was otherwise advised to follow-up with his primary care physician in 3 to 5 days for reevaluation or return to the ED immediately if symptoms get worse. - Differential Diagnosis Chest wall muscle strain; chronic osteoarthritis; chronic gouty arthropathy Critical care attestation.: If time is entered above; I have spent that time in minutes in the direct care of this critically ill patient, excluding procedure time. ED Disposition Clinical Impression: Chronic osteoarthritis, Chronic pain syndrome, Rib pain on left side Chronic CHF (congestive heart failure) Qualifiers: Heart failure type: unspecified Qualified Code(s): I50.9 - Heart failure, unspecified Disposition: 01 HOME / SELF CARE / HOMELESS Is pt being admited?: No Does the pt Need Aspirin: No Condition: Stable Instructions: Arthritis, [place]-Gjsu, Chest Wall Pain, Jqkz-[id number]-Awmh, Nonspecific Chest Pain, Adult, Pnvw-[id number] Additional Instructions: All lab test results were reviewed and are all nonactionable except for elevated BNP of 1801. Therefore take medications with food, drink plenty of fluids and follow-up with your primary care physician in 3 to 5 days for reevaluation or return to the ED immediately if symptoms get worse. Prescriptions: predniSONE [Deltasone] 40 mg PO QDAY #10 tab Naproxen 500 mg PO Q12H PRN #30 tablet PRN Reason: Pain , Severe (7-10) traMADoL [Ultram] 50 mg PO Q6HR PRN #10 tablet PRN Reason: Pain Referrals: [facility] [Provider Group] - 3-5 Days Time of Disposition: 04:12 Print Language: ROMANIAN
[2021-11-29] MEDS ORDERED: FUROSEMIDE 40 MG/4 ML INJ IV ONE (04:15)
[2021-11-29] MEDS ORDERED: FAMOTIDINE 20 MG TAB PO ONE (05:36)
== END 2021-11-29 10:00 | disposition home or self-care (01) ==
LOC: ED 00:24
DX: I50.9 Heart failure, unspecified (principal); G89.29 Other chronic pain; R07.81 Pleurodynia; M19.90 Unspecified osteoarthritis, unspecified site; I10 Essential (primary) hypertension; E11.8 Type 2 diabetes mellitus with unspecified complications; J45.909 Unspecified asthma, uncomplicated; Z79.82 Long term (current) use of aspirin; Z79.899 Other long term (current) drug therapy
CPT/HCPCS: 36415; 71045; 80053; 83880; 84484; 85025; 96374; 96375; 99284; J1940; J2270; J2405; J2930

== ENCOUNTER 2021-12-06 16:00 | Emergency (ER) | payer MEDICAID ==
[2021-12-06] MEDS ORDERED: methylPREDNISolone ACETATE 80 MG/1 ML INJ IM ONE (20:17)
--- NOTE | 2021-12-06 20:17 | Emergency Department Report ---
ED General Adult HPI - General Chief complaint: Extremity Injury, Lower Stated complaint: CAN'T WALK Time Seen by Provider: 12/06/21 20:03 Source: EMS Mode of arrival: Wheelchair Limitations: Physical Limitation - History of Present Illness Initial comments: Patient came in by EMS because he could not walk. For 30 days, he has been unable to walk. He reports knee pain on the right. He reports bilateral foot pain. He has a history of gout. He states he has not been able to get out of his hospital bed for 30 days. Patient states that he just cannot get comfortable. He does have gout. He is on medicine for gout. He states it is not helping. Because of this, he came here by ambulance. He states he does not want to go home tonight because his friends and family are mad at him. He states that they are mad because he is "been crying out." He has no direct trauma. There is no fevers or chills but there is no cough or congestion. He states that he does feel generally weak. He has had no runny nose. There has been no hematemesis or coffee-ground emesis. Again, patient has been having symptoms from a prolonged period of time. He cannot really tell me why he came in tonight other than he needed pain control. - Related Data Home Medications Medication Instructions Recorded Confirmed Last Taken Oxycodone HCl [roxiCODONE] 30 mg PO Q6H 08/01/21 11/06/21 07/29/21 ALBUTEROL NEB's [Proventil 0.083% 2.5 mg IH QDAY 11/06/21 11/06/21 Unknown NEBS] Alfuzosin HCl [Alfuzosin HCl ER] 10 mg PO QDAY 11/06/21 11/06/21 Unknown Previous Rx's Medication Instructions Recorded Last Taken Type Aspirin [Aspirin BABY CHEW TAB] 81 mg PO QDAY #30 11/08/21 Unknown Rx AtorvaSTATin [Lipitor] 20 mg PO QHS #20 11/08/21 Unknown Rx Cyclobenzaprine [Flexeril 10 MG 10 mg PO QHS #10 11/08/21 Unknown Rx TAB] Furosemide [Lasix TAB] 40 mg PO 0600,1800 tablet 11/08/21 Unknown Rx Furosemide [Lasix TAB] 80 mg PO QDAY #30 11/08/21 Unknown Rx Isosorbide Mononitrate [Isosorbide 30 mg PO DAILY #30 11/08/21 Unknown Rx Mononitrate ER] Nicotine [Habitrol] 14 mg TD DAILY #30 patch 11/08/21 Unknown Rx Pantoprazole [Protonix TAB] 40 mg PO QDAY #30 11/08/21 Unknown Rx Potassium Chloride [K-Dur] 10 meq PO QDAY #30 tablet 11/08/21 Unknown Rx carvediloL [Coreg] 6.25 mg PO BID #60 tablet 11/08/21 Unknown Rx lisinopriL [Zestril TAB] 10 mg PO QDAY #30 11/08/21 Unknown Rx risperiDONE [RisperDAL] 2 mg PO QHS #30 tablet 11/08/21 Unknown Rx Naproxen 500 mg PO Q12H PRN #30 tablet 11/29/21 Unknown Rx traMADoL [Ultram] 50 mg PO Q6HR PRN #10 tablet 11/29/21 Unknown Rx Colchicine [Colcrys] 0.6 mg PO BID #10 tablet 12/06/21 Unknown Rx predniSONE [Deltasone] 40 mg PO QDAY #10 tab 12/06/21 Unknown Rx Allergies Allergy/AdvReac Type Severity Reaction Status Date / Time No Known Allergies Allergy Verified 11/29/21 00:27 ED Review of Systems ROS: Stated complaint: CAN'T WALK Other details as noted in HPI Comment: All other systems reviewed and negative Constitutional: denies: fever Eyes: denies: eye pain ENT: denies: throat pain Respiratory: denies: cough Cardiovascular: denies: chest pain Endocrine: denies: unexplained weight loss Gastrointestinal: denies: abdominal pain Genitourinary: denies: dysuria Musculoskeletal: denies: back pain Skin: denies: rash Neurological: as per HPI Hematological/Lymphatic: denies: easy bruising ED Past Medical Hx - Past Medical History Hx Hypertension: Yes Hx Congestive Heart Failure: Yes Hx Diabetes: Yes Hx Arthritis: Yes Hx Asthma: Yes Additional medical history: gout - Surgical History Additional Surgical History: unknown - Family History Family history: hypertension - Social History Smoking Status: Never Smoker - Medications Home Medications: Home Medications Medication Instructions Recorded Confirmed Last Taken Type Oxycodone HCl [roxiCODONE] 30 mg PO Q6H 08/01/21 11/06/21 07/29/21 History ALBUTEROL NEB's [Proventil 0.083% 2.5 mg IH QDAY 11/06/21 11/06/21 Unknown History NEBS] Alfuzosin HCl [Alfuzosin HCl ER] 10 mg PO QDAY 11/06/21 11/06/21 Unknown History Aspirin [Aspirin BABY CHEW TAB] 81 mg PO QDAY #30 11/08/21 Unknown Rx AtorvaSTATin [Lipitor] 20 mg PO QHS #20 11/08/21 Unknown Rx Cyclobenzaprine [Flexeril 10 MG 10 mg PO QHS #10 11/08/21 Unknown Rx TAB] Furosemide [Lasix TAB] 40 mg PO 0600,1800 tablet 11/08/21 Unknown Rx Furosemide [Lasix TAB] 80 mg PO QDAY #30 11/08/21 Unknown Rx Isosorbide Mononitrate [Isosorbide 30 mg PO DAILY #30 11/08/21 Unknown Rx Mononitrate ER] Nicotine [Habitrol] 14 mg TD DAILY #30 patch 11/08/21 Unknown Rx Pantoprazole [Protonix TAB] 40 mg PO QDAY #30 11/08/21 Unknown Rx Potassium Chloride [K-Dur] 10 meq PO QDAY #30 tablet 11/08/21 Unknown Rx carvediloL [Coreg] 6.25 mg PO BID #60 tablet 11/08/21 Unknown Rx lisinopriL [Zestril TAB] 10 mg PO QDAY #30 11/08/21 Unknown Rx risperiDONE [RisperDAL] 2 mg PO QHS #30 tablet 11/08/21 Unknown Rx Naproxen 500 mg PO Q12H PRN #30 tablet 11/29/21 Unknown Rx traMADoL [Ultram] 50 mg PO Q6HR PRN #10 tablet 11/29/21 Unknown Rx Colchicine [Colcrys] 0.6 mg PO BID #10 tablet 12/06/21 Unknown Rx predniSONE [Deltasone] 40 mg PO QDAY #10 tab 12/06/21 Unknown Rx ED Physical Exam - General Limitations: Physical Limitation General appearance: alert, in no apparent distress - Head Head exam: Present: atraumatic, normocephalic - Eye Eye exam: Present: normal appearance, EOMI - ENT ENT exam: Present: normal orophraynx, normal external ear exam - Neck Neck exam: Present: normal inspection. Absent: meningismus - Respiratory Respiratory exam: Present: normal lung sounds bilaterally. Absent: respiratory distress - Cardiovascular Cardiovascular Exam: Present: regular rate, normal rhythm - GI/Abdominal GI/Abdominal exam: Present: soft. Absent: distended - Extremities Exam Extremities exam: Present: normal capillary refill, other (There is effusion of the right knee with diffuse tenderness. There is no warmth or erythema associated with this. There is limited range of motion due to pain.). Absent: calf tenderness - Back Exam Back exam: Absent: CVA tenderness (R), CVA tenderness (L) - Neurological Exam Neurological exam: Present: alert, oriented X3, CN II-XII intact - Psychiatric Psychiatric exam: Present: normal affect, normal mood - Skin Skin exam: Present: warm, dry ED Course - Reevaluation(s) Reevaluation #1: 12/06/21 20:17 Medications and labs ordered. Old records noted. Reevaluation #2: 12/07/21 00:38 Work-up was complete. Patient was discharged. He became irate that he was being discharged. He stated that he still had too much pain to walk. He wanted us to admit him for pain control. At this time, he has no evidence of acute infectious process. He has gout. He was treated symptomatically and referred. There is no medical indication for admission at this time. We discussed alf placement which the patient did not want. ED Medical Decision Making - Lab Data Result diagrams: 12/06/21 20:21 12/06/21 20:21 - Medical Decision Making Patient presents secondary to inability to walk. He states that this and been going on for at least a month. He admits to having a hospital bed. He states that he has been having problems with gout in the right knee for the last 3 days however. He does have clinical symptoms that would be consistent with gout. There is no trauma that would suggest a traumatic effusion. He has no fevers or chills or leukocytosis that would suggest an obvious infectious pathology or septic arthritis. Patient states that his feet hurt and his knee hurts and he cannot walk due to pain. We have treated him symptomatically. This has been an ongoing and chronic issue. I do not believe opioids are the appropriate treatment. He wants to be admitted but there is no medical reason to admit him. We did discuss alf placement and he declined. At this time, he was discharged. He was instructed to return for problems and to follow his regular physician if he felt as though he needed alf placement. Critical Care Time: No Critical care attestation.: If time is entered above; I have spent that time in minutes in the direct care of this critically ill patient, excluding procedure time. ED Disposition Clinical Impression: Foot pain, bilateral Gout attack Qualifiers: Gout site: knee Gout etiology: unspecified cause Laterality: right Qualified Code(s): M10.9 - Gout, unspecified Disposition: 01 HOME / SELF CARE / HOMELESS Is pt being admited?: No Condition: Stable Instructions: Low-Purine Eating Plan, How to Use Cold Therapy, [id number], Foot Pain Additional Instructions: Apply ice to sore areas. Drink any water. Return for problems. Drink plenty of water. Follow-up with your regular doctor. Take your medicine for gout. Prescriptions: Colchicine [Colcrys] 0.6 mg PO BID #10 tablet predniSONE [Deltasone] 40 mg PO QDAY #10 tab Referrals: PRIMARY CARE, [Primary Care Provider] - 3-5 Days
[2021-12-06 21:15] LABS: Mean Corpuscular HGB Conc 29 % (32-34); Mean Corpuscular Volume 80 fl (84-94); Platelet Count 324 K/mm3 (140-440)
[2021-12-06 21:21] LABS: Calcium 9.1 mg/dL (8.4-10.2)
[2021-12-06 22:12] LABS: Hemoglobin 9.4 gm/dl (11.8-15.2)
[2021-12-06 22:13] LABS: Hematocrit 32.1 % (35.5-45.6)
[2021-12-07 02:48] VITALS: BP 112/67
== END 2021-12-07 22:45 | disposition home or self-care (01) ==
LOC: ED 16:00
DX: M79.672 Pain in left foot (principal); M79.671 Pain in right foot; M10.9 Gout, unspecified; I11.0 Hypertensive heart disease with heart failure; I50.9 Heart failure, unspecified; E11.9 Type 2 diabetes mellitus without complications; M19.90 Unspecified osteoarthritis, unspecified site; J45.909 Unspecified asthma, uncomplicated
CPT/HCPCS: 36415; 80048; 85027; 96372; 99283; J1040

== ENCOUNTER 2022-03-11 04:48 | Emergency (ER) | payer MEDICAID ==
[2022-03-11 08:24] VITALS: BP 124/81
--- NOTE | 2022-03-11 09:46 | Emergency Department Report ---
ED Lower Extremity HPI - General Chief Complaint: Extremity Injury, Lower Stated Complaint: BILATERAL HEEL PAIN Time Seen by Provider: 03/11/22 09:41 Source: EMS Mode of arrival: Stretcher Limitations: No Limitations - History of Present Illness Initial Comments: Mr. Link is a 61-year-old gentleman that comes to the emergency room complaining of chronic bilateral heel pain. He tells me that he wants a referral to [facility] to the orthopedic doctor. Mr. Link is known to us for he is in the emergency room waiting room just about every morning. He denies fall or trauma. He is in his usual state of health. He is moaning every time somebody walks by and then asking for food. Patient denies fever or chills. He denies chest pain or shortness of breath. Denies abdominal pain, nausea vomiting or diarrhea. Vital signs noted normal in triage. MD Complaint: other -: Gradual, year(s) Improves With: immobilization Worsens With: movement - Related Data Home Medications Medication Instructions Recorded Confirmed Last Taken Oxycodone HCl [roxiCODONE] 30 mg PO Q6H 08/01/21 11/06/21 07/29/21 ALBUTEROL NEB's [Proventil 0.083% 2.5 mg IH QDAY 11/06/21 11/06/21 Unknown NEBS] Alfuzosin HCl [Alfuzosin HCl ER] 10 mg PO QDAY 11/06/21 11/06/21 Unknown Previous Rx's Medication Instructions Recorded Last Taken Type Aspirin [Aspirin BABY CHEW TAB] 81 mg PO QDAY #30 11/08/21 Unknown Rx AtorvaSTATin [Lipitor] 20 mg PO QHS #20 11/08/21 Unknown Rx Cyclobenzaprine [Flexeril 10 MG 10 mg PO QHS #10 11/08/21 Unknown Rx TAB] Furosemide [Lasix TAB] 40 mg PO 0600,1800 tablet 11/08/21 Unknown Rx Furosemide [Lasix TAB] 80 mg PO QDAY #30 11/08/21 Unknown Rx Isosorbide Mononitrate [Isosorbide 30 mg PO DAILY #30 11/08/21 Unknown Rx Mononitrate ER] Nicotine [Habitrol] 14 mg TD DAILY #30 patch 11/08/21 Unknown Rx Pantoprazole [Protonix TAB] 40 mg PO QDAY #30 11/08/21 Unknown Rx Potassium Chloride [K-Dur] 10 meq PO QDAY #30 tablet 11/08/21 Unknown Rx carvediloL [Coreg] 6.25 mg PO BID #60 tablet 11/08/21 Unknown Rx lisinopriL [Zestril TAB] 10 mg PO QDAY #30 11/08/21 Unknown Rx risperiDONE [RisperDAL] 2 mg PO QHS #30 tablet 11/08/21 Unknown Rx Naproxen 500 mg PO Q12H PRN #30 tablet 11/29/21 Unknown Rx traMADoL [Ultram] 50 mg PO Q6HR PRN #10 tablet 11/29/21 Unknown Rx Colchicine [Colcrys] 0.6 mg PO BID #10 tablet 12/06/21 Unknown Rx predniSONE [Deltasone] 40 mg PO QDAY #10 tab 12/06/21 Unknown Rx Allergies Allergy/AdvReac Type Severity Reaction Status Date / Time No Known Allergies Allergy Verified 11/29/21 00:27 ED Review of Systems ROS: Stated complaint: BILATERAL HEEL PAIN Other details as noted in HPI Comment: All other systems reviewed and negative ED Past Medical Hx - Past Medical History Previous Medical History?: Yes Hx Hypertension: Yes Hx Congestive Heart Failure: Yes Hx Diabetes: Yes Hx Arthritis: Yes Hx Asthma: Yes Additional medical history: gout - Surgical History Past Surgical History?: No Additional Surgical History: unknown - Family History Family history: no significant - Social History Smoking Status: Never Smoker - Medications Home Medications: Home Medications Medication Instructions Recorded Confirmed Last Taken Type Oxycodone HCl [roxiCODONE] 30 mg PO Q6H 08/01/21 11/06/21 07/29/21 History ALBUTEROL NEB's [Proventil 0.083% 2.5 mg IH QDAY 11/06/21 11/06/21 Unknown History NEBS] Alfuzosin HCl [Alfuzosin HCl ER] 10 mg PO QDAY 11/06/21 11/06/21 Unknown History Aspirin [Aspirin BABY CHEW TAB] 81 mg PO QDAY #30 11/08/21 Unknown Rx AtorvaSTATin [Lipitor] 20 mg PO QHS #20 11/08/21 Unknown Rx Cyclobenzaprine [Flexeril 10 MG 10 mg PO QHS #10 11/08/21 Unknown Rx TAB] Furosemide [Lasix TAB] 40 mg PO 0600,1800 tablet 11/08/21 Unknown Rx Furosemide [Lasix TAB] 80 mg PO QDAY #30 11/08/21 Unknown Rx Isosorbide Mononitrate [Isosorbide 30 mg PO DAILY #30 11/08/21 Unknown Rx Mononitrate ER] Nicotine [Habitrol] 14 mg TD DAILY #30 patch 11/08/21 Unknown Rx Pantoprazole [Protonix TAB] 40 mg PO QDAY #30 11/08/21 Unknown Rx Potassium Chloride [K-Dur] 10 meq PO QDAY #30 tablet 11/08/21 Unknown Rx carvediloL [Coreg] 6.25 mg PO BID #60 tablet 11/08/21 Unknown Rx lisinopriL [Zestril TAB] 10 mg PO QDAY #30 11/08/21 Unknown Rx risperiDONE [RisperDAL] 2 mg PO QHS #30 tablet 11/08/21 Unknown Rx Naproxen 500 mg PO Q12H PRN #30 tablet 11/29/21 Unknown Rx traMADoL [Ultram] 50 mg PO Q6HR PRN #10 tablet 11/29/21 Unknown Rx Colchicine [Colcrys] 0.6 mg PO BID #10 tablet 12/06/21 Unknown Rx predniSONE [Deltasone] 40 mg PO QDAY #10 tab 12/06/21 Unknown Rx ED Physical Exam - General Limitations: No Limitations General appearance: alert, in no apparent distress - Head Head exam: Present: atraumatic, normocephalic - Eye Eye exam: Present: normal appearance - ENT ENT exam: Present: mucous membranes moist - Neck Neck exam: Present: normal inspection - Respiratory Respiratory exam: Present: normal lung sounds bilaterally. Absent: respiratory distress - Cardiovascular Cardiovascular Exam: Present: regular rate, normal rhythm. Absent: systolic murmur, diastolic murmur, rubs, gallop - GI/Abdominal GI/Abdominal exam: Present: soft, normal bowel sounds - Rectal Rectal exam: Present: deferred - Extremities Exam Extremities exam: Present: normal inspection - Back Exam Back exam: Present: normal inspection - Neurological Exam Neurological exam: Present: alert, oriented X3 - Skin Skin exam: Present: warm, dry, intact, normal color. Absent: rash ED Course Vital Signs 03/11/22 03/11/22 04:56 08:22 Temperature 97.9 F 97.8 F Pulse Rate 94 H 93 H Respiratory 18 16 Rate Blood Pressure 124/81 Blood Pressure 164/88 [Right] O2 Sat by Pulse 98 96 Oximetry ED Lower Extremity MDM - Medical Decision Making Vital Signs 03/11/22 03/11/22 04:56 08:22 Temperature 97.9 F 97.8 F Pulse Rate 94 H 93 H Respiratory 18 16 Rate Blood Pressure 124/81 Blood Pressure 164/88 [Right] O2 Sat by Pulse 98 96 Oximetry Patient has chronic heel pain. There is no indication for x-ray as this is chronic and he has no new fall or trauma. He is neuro intact, in his usual state of health and in no acute distress. I have medicated the patient with Motrin for pain. The nurses have provided him something to eat. Patient is being discharged to home with discharge plan of care including diet, activity, medications and follow-up. I have given him a referral to [facility] but I have also told him that he needs to call [facility] to get entered into one of the pods to get seen by the orthopedic doctor. He verbalizes understanding - Differential Diagnosis Heel pain Critical care attestation.: If time is entered above; I have spent that time in minutes in the direct care of this critically ill patient, excluding procedure time. ED Disposition Clinical Impression: Malingering, Homelessness, Hx of schizophrenia Chronic heel pain Qualifiers: Laterality: unspecified laterality Qualified Code(s): M79.673 - Pain in unsp ecified foot; G89.29 - Other chronic pain Disposition: 01 HOME / SELF CARE / HOMELESS Is pt being admited?: No Does the pt Need Aspirin: No Condition: Stable Instructions: Foot Pain Additional Instructions: Follow-up with [facility] for your ongoing medical needs Referrals: [facility] [Outside] - 3-5 Days Time of Disposition: 09:46
[2022-03-11] MEDS ORDERED: IBUPROFEN 800 MG TAB PO ONE (10:03)
== END 2022-03-11 10:34 | disposition home or self-care (01) ==
LOC: ED 04:48
DX: M79.672 Pain in left foot (principal); M79.671 Pain in right foot; Z76.5 Malingerer [conscious simulation]; F20.9 Schizophrenia, unspecified; I11.0 Hypertensive heart disease with heart failure; I50.9 Heart failure, unspecified; E11.9 Type 2 diabetes mellitus without complications; M19.90 Unspecified osteoarthritis, unspecified site; J45.909 Unspecified asthma, uncomplicated; Z79.899 Other long term (current) drug therapy; Z59.00 Homelessness unspecified
CPT/HCPCS: 99283

== ENCOUNTER 2022-04-07 01:31 | Emergency (ER) | payer MEDICAID ==
[2022-04-07 01:37] VITALS: BP 170/84
== END 2022-04-07 04:56 | disposition left against medical advice (07) ==
LOC: ED 01:31
DX: R69 Illness, unspecified (principal); Z53.21 Procedure and treatment not carried out due to patient leaving prior to being seen by health care provider

== ENCOUNTER 2022-07-08 19:20 | Emergency (ER) | payer MEDICAID ==
[2022-07-08] MEDS ORDERED: ACETAMINOPHEN 500 MG TAB PO ONE (22:12)
[2022-07-08] MEDS ORDERED: traMADol 50 MG TAB PO ONE (22:12)
[2022-07-08] MEDS ORDERED: predniSONE 20 MG TAB PO ONE (22:12)
--- NOTE | 2022-07-08 22:50 | Emergency Department Report ---
ED General Adult HPI - General Chief complaint: Extremity Injury, Lower Stated complaint: BOTH KNEE PAIN Time Seen by Provider: 07/08/22 22:12 Source: EMS Mode of arrival: Stretcher Limitations: No Limitations - History of Present Illness Initial comments: Is a 61-year-old male with history of gout and ostial arthritis who presents for bilateral knee pain. pt is wheel chair bound for past 7 months. Patient denies new fall injury or trauma. States pain is 6/10 aching sharp. Pain is exacerbated by weightbearing. Pain is relieved by nothing tried. Patient does have a primary care doctor. Current regimen includes NSAIDs as needed for pain. Patient has primary doctor Dr. Cabrera who he can follow-up with in 1 to 2 days. Arrived to ED via ambulance as he has no other ride. Patient states he lives in a residential with 2 other roommates. Patient currently with no acute distress patient tolerating p.o. intake. Patient denies other symptoms. Severity scale (0 -10): 10 - Related Data Home Medications Medication Instructions Recorded Confirmed Last Taken ALBUTEROL NEB's [Proventil 0.083% 2.5 mg IH QDAY 11/06/21 11/06/21 Unknown NEBS] Alfuzosin HCl [Alfuzosin HCl ER] 10 mg PO QDAY 11/06/21 11/06/21 Unknown Previous Rx's Medication Instructions Recorded Last Taken Type Aspirin [Aspirin BABY CHEW TAB] 81 mg PO QDAY #30 11/08/21 Unknown Rx AtorvaSTATin [Lipitor] 20 mg PO QHS #20 11/08/21 Unknown Rx Furosemide [Lasix TAB] 40 mg PO 0600,1800 tablet 11/08/21 Unknown Rx Furosemide [Lasix TAB] 80 mg PO QDAY #30 11/08/21 Unknown Rx Isosorbide Mononitrate [Isosorbide 30 mg PO DAILY #30 11/08/21 Unknown Rx Mononitrate ER] Pantoprazole [Protonix TAB] 40 mg PO QDAY #30 11/08/21 Unknown Rx carvediloL [Coreg] 6.25 mg PO BID #60 tablet 11/08/21 Unknown Rx lisinopriL [Zestril TAB] 10 mg PO QDAY #30 11/08/21 Unknown Rx risperiDONE [RisperDAL] 2 mg PO QHS #30 tablet 11/08/21 Unknown Rx Colchicine [Colcrys] 0.6 mg PO BID #10 tablet 12/06/21 Unknown Rx Acetaminophen/Codeine [Tylenol 1 tab PO Q6H PRN #12 tab 07/08/22 Unknown Rx /Codeine # 3 tab] Colchicine [Colcrys] 0.6 mg PO BID #10 tab 07/08/22 Unknown Rx predniSONE [Deltasone] 20 mg PO QDAY 5 Days #5 tab 07/08/22 Unknown Rx Allergies Allergy/AdvReac Type Severity Reaction Status Date / Time No Known Allergies Allergy Verified 11/29/21 00:27 ED Review of Systems ROS: Stated complaint: BOTH KNEE PAIN Other details as noted in HPI Constitutional: denies: chills, fever Eyes: denies: eye pain, eye discharge, vision change ENT: denies: ear pain, throat pain Respiratory: denies: cough, shortness of breath, wheezing Cardiovascular: denies: chest pain, palpitations Endocrine: no symptoms reported Gastrointestinal: denies: abdominal pain, nausea, diarrhea Genitourinary: denies: urgency, dysuria Musculoskeletal: arthralgia (Bilateral knees) Skin: denies: rash, lesions Neurological: denies: headache, weakness, paresthesias Psychiatric: denies: anxiety, depression Hematological/Lymphatic: denies: easy bleeding, easy bruising ED Past Medical Hx - Past Medical History Previous Medical History?: Yes Hx Hypertension: Yes Hx Congestive Heart Failure: Yes Hx Diabetes: Yes Hx Arthritis: Yes Hx Asthma: Yes Additional medical history: gout - Surgical History Past Surgical History?: Yes Additional Surgical History: unknown - Social History Smoking Status: Current Every Day Smoker Substance Use Type: None - Medications Home Medications: Home Medications Medication Instructions Recorded Confirmed Last Taken Type ALBUTEROL NEB's [Proventil 0.083% 2.5 mg IH QDAY 11/06/21 11/06/21 Unknown History NEBS] Alfuzosin HCl [Alfuzosin HCl ER] 10 mg PO QDAY 11/06/21 11/06/21 Unknown History Aspirin [Aspirin BABY CHEW TAB] 81 mg PO QDAY #30 11/08/21 Unknown Rx AtorvaSTATin [Lipitor] 20 mg PO QHS #20 11/08/21 Unknown Rx Furosemide [Lasix TAB] 40 mg PO 0600,1800 tablet 11/08/21 Unknown Rx Furosemide [Lasix TAB] 80 mg PO QDAY #30 11/08/21 Unknown Rx Isosorbide Mononitrate [Isosorbide 30 mg PO DAILY #30 11/08/21 Unknown Rx Mononitrate ER] Pantoprazole [Protonix TAB] 40 mg PO QDAY #30 11/08/21 Unknown Rx carvediloL [Coreg] 6.25 mg PO BID #60 tablet 11/08/21 Unknown Rx lisinopriL [Zestril TAB] 10 mg PO QDAY #30 11/08/21 Unknown Rx risperiDONE [RisperDAL] 2 mg PO QHS #30 tablet 11/08/21 Unknown Rx Colchicine [Colcrys] 0.6 mg PO BID #10 tablet 12/06/21 Unknown Rx Acetaminophen/Codeine [Tylenol 1 tab PO Q6H PRN #12 tab 07/08/22 Unknown Rx /Codeine # 3 tab] Colchicine [Colcrys] 0.6 mg PO BID #10 tab 07/08/22 Unknown Rx predniSONE [Deltasone] 20 mg PO QDAY 5 Days #5 tab 07/08/22 Unknown Rx ED Physical Exam - General Limitations: No Limitations General appearance: alert, in no apparent distress - Head Head exam: Present: atraumatic, normocephalic - Eye Eye exam: Present: EOMI Pupils: Present: normal accommodation - ENT ENT exam: Present: mucous membranes moist - Neck Neck exam: Present: normal inspection, full ROM. Absent: tenderness - Respiratory Respiratory exam: Present: normal lung sounds bilaterally. Absent: respiratory distress - Cardiovascular Cardiovascular Exam: Present: regular rate, normal rhythm, normal heart sounds. Absent: systolic murmur, diastolic murmur, rubs, gallop - GI/Abdominal GI/Abdominal exam: Present: soft, normal bowel sounds. Absent: distended, tenderness - Rectal Rectal exam: Present: deferred - Extremities Exam Extremities exam: Present: full ROM, normal capillary refill, joint swelling (There is bilateral knee swelling however there is no crepitus no step-off no deformity no anterior drawer patient maintains full bilateral knee extension. Patient is partial weightbearing.) - Back Exam Back exam: Present: normal inspection, full ROM. Absent: CVA tenderness (R), CVA tenderness (L), paraspinal tenderness, vertebral tenderness - Neurological Exam Neurological exam: Present: alert, oriented X3, CN II-XII intact, reflexes normal. Absent: motor sensory deficit - Expanded Neurological Exam Expanded Patient oriented to: Present: person, place, time Speech: Present: fluid speech Motor strength exam: RUE: 5, LUE: 5, RLE: 5, LLE: 5 DTR: knee (R): 1+, knee (L): 1+ Best Eye Response (Darrell): (4) open spontaneously Best Motor Response (Wilmot): (6) obeys commands Best Verbal Response (Darrell): (5) oriented Darrell Total: 15 - Psychiatric Psychiatric exam: Present: normal affect, normal mood - Skin Skin exam: Present: warm, dry, intact, normal color. Absent: rash ED Course Vital Signs 07/08/22 07/08/22 07/08/22 19:41 20:24 22:28 Temperature 98.1 F 98.0 F Pulse Rate 91 H 84 Respiratory 18 18 16 Rate Blood Pressure 190/120 Blood Pressure 145/99 [Left] O2 Sat by Pulse 98 100 Oximetry 07/08/22 22:30 Temperature Pulse Rate Respiratory 16 Rate Blood Pressure Blood Pressure [Left] O2 Sat by Pulse Oximetry ED Medical Decision Making - Medical Decision Making Pain improved with medications given in ED. patient states pain is to baseline. Plan DC to home follow-up with primary care doctor in 1 to 2 days. Return to emergency department should symptoms worsen. Patient verbalized agreement understanding of discharge plan. Patient will be DC'd home in stable condition at this time. Patient awaiting transport via [facility], patient has wheelchair at home follow-up with Dr. Valerio in 1 to 2 days. Critical care attestation.: If time is entered above; I have spent that time in minutes in the direct care of this critically ill patient, excluding procedure time. ED Disposition Clinical Impression: Chronic pain of both knees Disposition: HOME / SELF CARE / HOMELESS Is pt being admited?: No Does the pt Need Aspirin: No Condition: Stable Instructions: Chronic Knee Pain, Adult, [id number] Additional Instructions: Take medication as prescribed, use wheelchair as directed by your primary care doctor. Follow-up with your primary care doctor in 1 to 2 days. Return to emergency department should symptoms worsen. Prescriptions: Colchicine [Colcrys] 0.6 mg PO BID #10 tab predniSONE [Deltasone] 20 mg PO QDAY 5 Days #5 tab Acetaminophen/Codeine [Tylenol /Codeine # 3 tab] 1 tab PO Q6H PRN #12 tab PRN Reason: pain Referrals: ZAK HENDERSON MD [Staff Physician] - 2-3 Days Time of Disposition: 23:33
[2022-07-08] MEDS ORDERED: HYDROcodone/ACETAMINOPHEN 5-325 MG TAB PO ONE (23:20)
[2022-07-09 00:07] VITALS: BP 142/86
== END 2022-07-08 23:55 | disposition home or self-care (01) ==
LOC: ED 19:20
DX: M25.561 Pain in right knee (principal); M25.562 Pain in left knee; I11.0 Hypertensive heart disease with heart failure; I50.9 Heart failure, unspecified; E11.9 Type 2 diabetes mellitus without complications; M19.90 Unspecified osteoarthritis, unspecified site; J45.909 Unspecified asthma, uncomplicated; F17.200 Nicotine dependence, unspecified, uncomplicated; Z79.899 Other long term (current) drug therapy
CPT/HCPCS: 99283

== ENCOUNTER 2022-07-10 16:22 | Emergency (ER) | payer MEDICAID ==
[2022-07-10 16:38] VITALS: BP 160/90
--- NOTE | 2022-07-10 18:30 | Emergency Department Report ---
ED Extremity Problem HPI - General Chief complaint: Extremity Problem,Nontraumatic Stated complaint: ARTHRITIS Time Seen by Provider: 07/10/22 18:01 Source: patient, EMS Mode of arrival: Stretcher Limitations: No Limitations - History of Present Illness Initial comments: 61 yo male with a past medical history of CHF, schizophrenia, CVA, cocaine abuse diabetes, hypertension, gout, and osteomyelitis who has been wheelchair-bound for the last 7 to 8 months secondary to generalized arthralgias and joint pain presents to the hospital with complaints of acute exacerbation of chronic muscle skeletal pain. Patient was here 2 days for the same and has been to this ED multiple times since November with the same complaint. Patient also states he has been seen in multiple hospitals for the same complaints. He has chronic bilateral knee pain with swelling, chronic bony deformities of his hands and fingers secondary to gout/arthritis, and chronic shoulder, foot, and ankle pain. Pain is constant, severe, aching, and worse with movement. Today patient fell asleep in his wheelchair and fell out of the chair exacerbating his current pain. He denies headache or neck pain. His primary care doctor has referred him to an orthopedic doctor with first appointment scheduled next month. Patient also states he has been to multiple other hospitals and had an unsuccessful aspiration attempt in the ER 2 months ago. Last cocaine use was 2 days ago. Patient currently resides in a half-way with other residents with disabilities Patient was seen here July 08 with the same symptoms and was prescribed colchicine, Tylenol with codeine, and prednisone. Pt has not yet filled the meds because he has to wait 72 hrs to receive his meds Patient states he has not eaten in 2 days due to decreased appetite however, he is hungry and requesting food at this time - Related Data Home Medications Medication Instructions Recorded Confirmed Last Taken ALBUTEROL NEB's [Proventil 0.083% 2.5 mg IH QDAY 11/06/21 11/06/21 Unknown NEBS] Alfuzosin HCl [Alfuzosin HCl ER] 10 mg PO QDAY 11/06/21 11/06/21 Unknown Previous Rx's Medication Instructions Recorded Last Taken Type Aspirin [Aspirin BABY CHEW TAB] 81 mg PO QDAY #30 11/08/21 Unknown Rx AtorvaSTATin [Lipitor] 20 mg PO QHS #20 11/08/21 Unknown Rx Furosemide [Lasix TAB] 40 mg PO 0600,1800 tablet 11/08/21 Unknown Rx Furosemide [Lasix TAB] 80 mg PO QDAY #30 11/08/21 Unknown Rx Isosorbide Mononitrate [Isosorbide 30 mg PO DAILY #30 11/08/21 Unknown Rx Mononitrate ER] Pantoprazole [Protonix TAB] 40 mg PO QDAY #30 11/08/21 Unknown Rx carvediloL [Coreg] 6.25 mg PO BID #60 tablet 11/08/21 Unknown Rx lisinopriL [Zestril TAB] 10 mg PO QDAY #30 11/08/21 Unknown Rx risperiDONE [RisperDAL] 2 mg PO QHS #30 tablet 11/08/21 Unknown Rx Colchicine [Colcrys] 0.6 mg PO BID #10 tablet 12/06/21 Unknown Rx Acetaminophen/Codeine [Tylenol 1 tab PO Q6H PRN #12 tab 07/08/22 Unknown Rx /Codeine # 3 tab] Colchicine [Colcrys] 0.6 mg PO BID #10 tab 07/08/22 Unknown Rx predniSONE [Deltasone] 20 mg PO QDAY 5 Days #5 tab 07/08/22 Unknown Rx Allergies Allergy/AdvReac Type Severity Reaction Status Date / Time No Known Allergies Allergy Verified 11/29/21 00:27 ED Review of Systems ROS: Stated complaint: ARTHRITIS Other details as noted in HPI Comment: All other systems reviewed and negative ED Past Medical Hx - Past Medical History Hx Hypertension: Yes Hx CVA: Yes Hx Congestive Heart Failure: Yes Hx Diabetes: Yes Hx Arthritis: Yes Hx Asthma: Yes Additional medical history: gout - Surgical History Additional Surgical History: unknown - Social History Smoking Status: Current Every Day Smoker Substance Use Type: None - Medications Home Medications: Home Medications Medication Instructions Recorded Confirmed Last Taken Type ALBUTEROL NEB's [Proventil 0.083% 2.5 mg IH QDAY 11/06/21 11/06/21 Unknown History NEBS] Alfuzosin HCl [Alfuzosin HCl ER] 10 mg PO QDAY 11/06/21 11/06/21 Unknown History Aspirin [Aspirin BABY CHEW TAB] 81 mg PO QDAY #30 11/08/21 Unknown Rx AtorvaSTATin [Lipitor] 20 mg PO QHS #20 11/08/21 Unknown Rx Furosemide [Lasix TAB] 40 mg PO 0600,1800 tablet 11/08/21 Unknown Rx Furosemide [Lasix TAB] 80 mg PO QDAY #30 11/08/21 Unknown Rx Isosorbide Mononitrate [Isosorbide 30 mg PO DAILY #30 11/08/21 Unknown Rx Mononitrate ER] Pantoprazole [Protonix TAB] 40 mg PO QDAY #30 11/08/21 Unknown Rx carvediloL [Coreg] 6.25 mg PO BID #60 tablet 11/08/21 Unknown Rx lisinopriL [Zestril TAB] 10 mg PO QDAY #30 11/08/21 Unknown Rx risperiDONE [RisperDAL] 2 mg PO QHS #30 tablet 11/08/21 Unknown Rx Colchicine [Colcrys] 0.6 mg PO BID #10 tablet 12/06/21 Unknown Rx Acetaminophen/Codeine [Tylenol 1 tab PO Q6H PRN #12 tab 07/08/22 Unknown Rx /Codeine # 3 tab] Colchicine [Colcrys] 0.6 mg PO BID #10 tab 07/08/22 Unknown Rx predniSONE [Deltasone] 20 mg PO QDAY 5 Days #5 tab 07/08/22 Unknown Rx ED Physical Exam - General Limitations: No Limitations - Other Other exam information: General: No acute distress Head: Atraumatic Eyes: normal appearance ENT: Moist mucous membranes Neck: Normal appearance, no midline tenderness Chest: Clear to auscultation bilaterally CV: Regular rate and rhythm Abdomen: Soft, normal bowel sounds, nontender, nondistended, no rebound or guarding Back: Normal inspection Extremity: Mild bony deformity to fingers to bilateral hands secondary to arthritis. Full range of motion of upper extremities. Bilateral knee edema with right knee effusion with warmth. No skin erythema. Limited movement secondary to pain. No ankle or foot edema. Full range of motion of ankle and feet. 2+ DP pulse Neuro: Alert O x 3, no facial asymmetry, speech clear, no gross motor sensory deficit Psych: Appropriate behavior Skin: No rash ED Course Vital Signs 07/10/22 16:32 Temperature 97.8 F Pulse Rate 90 Respiratory 18 Rate Blood Pressure 160/90 [Left] O2 Sat by Pulse 96 Oximetry - Reevaluation(s) Reevaluation #1: 07/10/22 19:34 pt requesting insulin 70/30 10 units. Pt states he takes it TID and overdue for his 6pm dose. Blood glucose pending. 07/10/22 20:01 glucose 128. Nurse instructed to feed pt. Pt will be provided his current insulin dose ED Medical Decision Making - Radiology Data Radiology results: report reviewed AP PELVIS, SINGLE VIEW INDICATION / CLINICAL INFORMATION: fall, acute on chronic pain. COMPARISON: None available. FINDINGS: Single view of the pelvis is unremarkable. No fracture or dislocation is id entified. Mild to moderate degenerative changes are present within both hips. IMPRESSION: No acute fracture or dislocation. BILATERAL KNEE, 6 VIEWS INDICATION / CLINICAL INFORMATION: fall, acute on chronic pain. COMPARISON: None available. FINDINGS: Right knee: Marked demineralization of the bones. Moderate degenerative changes are present in the medial and lateral joint compartments. Mild chondrocalcinosis is noted. There is minimal suprapatellar joint effusion. There does appear to be some mild prepatellar soft tissue swelling. I do not see acute fracture or malalignment. Left knee marked demineralization of the bones. Moderate degenerative changes are present. Mild chondrocalcinosis is visible. No significant joint effusion. Probable minimal prepatellar soft tissue edema. No fracture or malalignment. IMPRESSION: 1. No acute fracture or malalignment of either knee. Mild bilateral prepatellar soft tissue swelling. 2. Bilateral chondrocalcinosis. 3. Bilateral moderate degenerative change. 4. Very small right suprapatellar joint effusion. - Medical Decision Making 61 yo year male presents with acute on chronic musculoskeletal pain secondary to arthritis and underlying history of gout. Patient was prescribed several medications 2 days ago which she has not yet filled. Continues to abuse cocaine. Patient was provided food per his request and a dose of his 70/30 insulin while in the ED. Douglas x1 provided for pain. pelvis and knee xrays without acute findings. Patient's current complaints are chronic and ongoing he requires follow-up for long-term and definitive treatment. Case management consult has been ordered to see if he qualifies for outpatient assistance with ADLs secondary to his underlying disability. Outpatient resources for substance abuse treatment will be provided Critical Care Time: No Critical care attestation.: If time is entered above; I have spent that time in minutes in the direct care of this critically ill patient, excluding procedure time. ED Disposition Clinical Impression: Chronic pain, Bilateral knee pain, Gout, Cocaine abuse Disposition: HOME / SELF CARE / HOMELESS Is pt being admited?: No Condition: Stable Instructions: Low-Purine Eating Plan, Chronic Knee Pain, Adult, [id number], Substance Use Disorder and Mental Illness, Chronic Pain, Adult Additional Instructions: Fill your recent prescriptions and take the medication as prescribed. Follow-up with your doctor and orthopedic doctor as scheduled. Return if symptoms worsen as indicated by your discharge instructions. Professional and Agency Contacts To help Resolve Crises (20/06) [place] Crisis Line: Suicide Prevention Line: Crisis Text Line: Text ``START to 111742 Emergency: 911 SUBSTANCE ABUSE PROGRAMS: [facility]: Location: [place], [place] [facility] Address: [address] [place] [address] [facility]: Address: [address] [place] [address] [facility]: Address: [address] [place] [address] [facility]: Address: [address] [place] [address] Referrals: your, doctor [Other] - 3-5 Days Time of Disposition: 20:09
[2022-07-10] MEDS ORDERED: HYDROcodone/ACETAMINOPHEN 5-325 MG TAB PO ONE (18:31)
--- NOTE | 2022-07-10 19:26 | XRay Report ---
BILATERAL KNEE, 6 VIEWS INDICATION / CLINICAL INFORMATION: fall, acute on chronic pain. COMPARISON: None available. FINDINGS: Right knee: Marked demineralization of the bones. Moderate degenerative changes are present in the me dial and lateral joint compartments. Mild chondrocalcinosis is noted. There is minimal suprapatellar joint effusion. There does appear to be some mild prepatellar soft tissue swelling. I do not see acut e fracture or malalignment. Left knee marked demineralization of the bones. Moderate degenerative changes are present. Mild chond rocalcinosis is visible. No significant joint effusion. Probable minimal prepatellar soft tissue ifrah a. No fracture or malalignment. IMPRESSION: 1. No acute fracture or malalignment of either knee. Mild bilateral prepatellar soft tissue swelling. 2. Bilateral chondrocalcinosis. 3. Bilateral moderate degenerative change. 4. Very small right suprapatellar joint effusion. Signer Name: Ghislaine Lincoln MD Signed: 07/10/2022 7:21 PM Workstation Name: [id number]
--- NOTE | 2022-07-10 19:36 | XRay Report ---
AP PELVIS, SINGLE VIEW INDICATION / CLINICAL INFORMATION: fall, acute on chronic pain. COMPARISON: None available. FINDINGS: Single view of the pelvis is unremarkable. No fracture or dislocation is identified. Mild to moderate degenerative changes are present within both hips. IMPRESSION: No acute fracture or dislocation. Signer Name: Ghislaine Lincoln MD Signed: 07/10/2022 7:31 PM Workstation Name: [id number]
[2022-07-11] MEDS ORDERED: INSULIN NPH/REGULAR 70/30 INJ SUB-Q ONE (20:07)
== END 2022-07-10 20:30 | disposition home or self-care (01) ==
LOC: ED 16:22
DX: G89.29 Other chronic pain (principal); M25.562 Pain in left knee; M25.561 Pain in right knee; M10.9 Gout, unspecified; F14.10 Cocaine abuse, uncomplicated; I11.0 Hypertensive heart disease with heart failure; I50.9 Heart failure, unspecified; E11.9 Type 2 diabetes mellitus without complications; M19.90 Unspecified osteoarthritis, unspecified site; J45.909 Unspecified asthma, uncomplicated; Z86.73 Personal history of transient ischemic attack (TIA), and cerebral infarction without residual deficits; F17.200 Nicotine dependence, unspecified, uncomplicated; Z79.899 Other long term (current) drug therapy
CPT/HCPCS: 72170; 82962; 99283